=== PATIENT | female | born 1955 | race Caucasian/White ===

== ENCOUNTER 2022-09-22 22:14 | Inpatient (IN) | payer MEDICAID ==
[~2022-09-22] VITALS: Ht 157.5 cm; Wt 67.1 kg
[2022-09-22 22:15] VITALS: BP_SYST 130; PULSE 101; RESP 20; TEMP 99.6; O2SAT 98
[2022-09-22] MEDS ORDERED: cefTRIAXone 1 GM IVPB PREMIX 50 ML IV ONE (22:30)
[2022-09-22 23:39] LABS: BILIRUBIN,URINE 1+ (NEGATIVE); BLOOD, URINE NEGATIVE (NEGATIVE); CLARITY/URINE CLEAR (CLEAR); COLOR,URINE YELLOW (YELLOW); GLUCOSE,URINE NEGATIVE (NEGATIVE); KETONES,URINE TRACE (NEGATIVE); LEUKOCYTE ESTERASE ,URINE NEGATIVE (NEGATIVE); NITRITE, URINE NEGATIVE (NEGATIVE); PH,URINE 7.5 (5.0-8.0); PROTEIN URINE 3+ (NEGATIVE)
[2022-09-22 23:45] LABS: BASOPHILS % (AUTO) 0.3 % (0.0-2.0); EOSINOPHILS # (AUTO) 0.1 K/uL (0.0-0.4); EOSINOPHILS % (AUTO) 1.5 % (0.0-4.0); HEMATOCRIT 23.1 % (36-48); HEMOGLOBIN 7.8 g/dL (12.0-16.0); LYMPHOCYTES # (AUTO) 0.7 K/uL (1.0-5.5); MEAN CORPUSCULAR HEMOGLOBIN 29 pg (27-31); MEAN CORPUSCULAR HGB CONC 34 % (32-36); MEAN CORPUSCULAR VOLUME 86 fL (79.0-98.0); MONOCYTES # (AUTO) 0.9 K/uL (0.0-1.0); MONOCYTES % (AUTO) 9.2 % (1.7-9.3); NEUTROPHILS # (AUTO) 8.1 K/uL (1.8-7.7); PLATELET COUNT (AUTO) 136 K/uL (130-430); RED BLOOD CELL COUNT(AUTO) 2.69 MIL/uL (4.2-6.2); RED CELL DISTRIBUTION WIDTH 15.1 % (9.0-15.0); WHITE BLOOD COUNT (AUTO) 9.8 K/uL (4.8-10.8)
[2022-09-22 23:57] LABS: BACTERIA,URINE MANY /HPF (None Seen)
[2022-09-23] VITALS (10 sets, daily range): BP systolic 133–161; PULSE 93–96; RESP 17–20; TEMP 98–98.2; O2SAT 96–100
[2022-09-23 00:01] LABS: ANION GAP 5 (5-15); CALCIUM 8.5 mg/dL (8.4-11.0); CHLORIDE 96 mmol/L (98-107); CREATININE 3.98 mg/dL (0.55-1.30); GFR AFRICAN AMERICAN 14 mL/min (>90); GLUCOSE 105 mg/dL (74-106); UREA NITROGEN, BLOOD 24 mg/dL (8-21)
[2022-09-23 00:21] LABS: ALANINE AMINOTRANSFERASE 10 U/L (12-78); ALBUMIN 2.1 g/dL (3.4-4.8); ASPARTATE AMINOTRANSFERASE 30 U/L (10-37); TOTAL BILIRUBIN 0.8 mg/dL (0.0-1.0)
[2022-09-23] MEDS ORDERED: GLUC1VIA20 SQ (00:22)
[2022-09-23] MEDS ORDERED: SYN50 PO (00:22)
[2022-09-23] MEDS ORDERED: MULT-976 PO (00:22)
[2022-09-23] MEDS ORDERED: VITD2000 PO (00:22)
[2022-09-23] MEDS ORDERED: LACT10SO6 PO (00:22)
[2022-09-23] MEDS ORDERED: CLON1TAB12 PO (00:22)
[2022-09-23] MEDS ORDERED: LIP40 PO (00:22)
[2022-09-23] MEDS ORDERED: LAM25 PO (00:22)
[2022-09-23] MEDS ORDERED: CLON0.1T PO (00:22)
[2022-09-23] MEDS ORDERED: FOLI-43 PO (00:22)
[2022-09-23] MEDS ORDERED: SERT50TA PO (00:22)
[2022-09-23] MEDS ORDERED: LOSA50TA3 PO (00:22)
[2022-09-23] MEDS ORDERED: HYDR-4039 PO (00:22)
[2022-09-23] MEDS ORDERED: TRAM50TA2 PO (00:22)
[2022-09-23] MEDS ORDERED: PHO667 PO (00:22)
[2022-09-23] MEDS ORDERED: ASPI-1155 PO (00:22)
[2022-09-23] MEDS ORDERED: QUET50TA PO (00:22)
[2022-09-23] MEDS ORDERED: INSU100I26 SQ (00:22)
[2022-09-23] MEDS ORDERED: BENZ1TAB82 PO (00:22)
[2022-09-23] MEDS ORDERED: OMEP20TA20 PO (00:22)
[2022-09-23] MEDS ORDERED: FERROUS SULFATE PO (00:22)
[2022-09-23] MEDS ORDERED: THIA50TA10 PO (00:22)
[2022-09-23] MEDS ORDERED: cloNIDine HCL 0.1 MG TABLET PO PRN (11:30)
[2022-09-23] MEDS ORDERED: IPRATROPIUM BROM 0.5 MG/2.5 ML VIAL.NEB (ATROVENT) INH PRN (11:30)
[2022-09-23] MEDS ORDERED: ACETAMINOPHEN 325 MG TABLET PO PRN ×2 (11:30→12:00)
[2022-09-23] MEDS ORDERED: ONDANSETRON HCL 4 MG/2 ML VIAL IVP PRN (11:30)
[2022-09-23] MEDS ORDERED: ALBUTEROL SULFATE 0.083% 2.5 MG/3 ML VIAL.NEB INH PRN (11:30)
[2022-09-23] MEDS: traMADol HCL HCL 50 MG TABLET (ULTRAM) PO PRN ×2 (12:45→20:50)
[2022-09-23] MEDS ORDERED: NON-FORMULARY MEDICATION (Lactulose 20 GM) PO SCH (15:00)
[2022-09-23] MEDS: hydrALAZINE HCL 25 MG TABLET PO SCH ×2 (15:50→22:33)
[2022-09-23] MEDS: LACTULOSE 20 GM/30 ML UDC PO SCH ×2 (15:50→22:35)
[2022-09-23] MEDS: CALCIUM ACETATE 667 MG CAP PO SCH ×2 (15:50→22:34)
[2022-09-23] MEDS: NORMAL SALINE 5 ML DISP.SYRIN IVF SCH ×2 (15:51→22:36)
[2022-09-23] MEDS ORDERED: [UNRECOGNIZED DRUG - OTHER] SQ SCH (21:00)
[2022-09-23] MEDS: LamoTRIgine 25 MG TABLET PO SCH (21:00)
[2022-09-23] MEDS ORDERED: INSULIN GLARGINE HUM REC ANLOG 6 UNIT SQ SCH (21:00)
[2022-09-23] MEDS ORDERED: NON-FORMULARY MEDICATION ([Ferrous Sulfate] 325 MG) PO SCH (21:00)
[2022-09-23] MEDS: QUEtiapine FUMARATE 25 MG TABLET PO SCH (22:34)
[2022-09-23] MEDS: clonazePAM 0.5 MG TABLET PO SCH (22:34)
[2022-09-23] MEDS: FERROUS SULFATE 325 MG TABLET.DR PO SCH (22:34)
[2022-09-23] MEDS: LOSARTAN POTASSIUM 50 MG TABLET (COZAAR) PO SCH (22:35)
[2022-09-23] MEDS: BENZTROPINE MESYLATE 1 MG TABLET PO SCH (22:35)
[2022-09-23] MEDS: ATORVASTATIN 20 MG TABLET PO SCH (22:35)
[2022-09-23] MEDS: cefTRIAXone 1 GM IVPB PREMIX 50 ML IV SCH (22:37)
[2022-09-23 23:41] LABS: BILIRUBIN,URINE NEGATIVE (NEGATIVE); BLOOD, URINE NEGATIVE (NEGATIVE); COLOR,URINE YELLOW (YELLOW); GLUCOSE,URINE NEGATIVE (NEGATIVE); KETONES,URINE NEGATIVE (NEGATIVE); NITRITE, URINE NEGATIVE (NEGATIVE); PROTEIN URINE 2+ (NEGATIVE)
[2022-09-23 23:54] LABS: CLARITY/URINE SLIGHTLY CLOUDY (CLEAR); LEUKOCYTE ESTERASE ,URINE TRACE (NEGATIVE)
[2022-09-23 23:55] LABS: BACTERIA,URINE MANY /HPF (None Seen); RBC,URINE 0-3 /HPF (0-3)
[2022-09-24 01:35] VITALS: BP_SYST 156; PULSE 89; RESP 18; TEMP 97.4; O2SAT 95
[2022-09-24 05:19] LABS: BASOPHILS % (AUTO) 0.4 % (0.0-2.0); EOSINOPHILS # (AUTO) 0.1 K/uL (0.0-0.4); EOSINOPHILS % (AUTO) 1.4 % (0.0-4.0); HEMATOCRIT 23.5 % (36-48); LYMPHOCYTES # (AUTO) 0.7 K/uL (1.0-5.5); LYMPHOCYTES % (AUTO) 6.9 % (20.5-51.5); MEAN CORPUSCULAR HEMOGLOBIN 29 pg (27-31); MEAN CORPUSCULAR HGB CONC 34 % (32-36); MEAN CORPUSCULAR VOLUME 85 fL (79.0-98.0); MONOCYTES # (AUTO) 0.9 K/uL (0.0-1.0); MONOCYTES % (AUTO) 8.4 % (1.7-9.3); NEUTROPHILS # (AUTO) 8.4 K/uL (1.8-7.7); NEUTROPHILS % (AUTO) 82.9 % (40.0-70.0); PLATELET COUNT (AUTO) 144 K/uL (130-430); RED BLOOD CELL COUNT(AUTO) 2.77 MIL/uL (4.2-6.2); RED CELL DISTRIBUTION WIDTH 14.7 % (9.0-15.0); WHITE BLOOD COUNT (AUTO) 10.1 K/uL (4.8-10.8)
[2022-09-24 05:50] LABS: ALBUMIN 2.1 g/dL (3.4-4.8); CALCIUM 8.6 mg/dL (8.4-11.0); CREATININE 4.61 mg/dL (0.55-1.30); PHOSPHORUS 2.8 mg/dL (2.7-4.5); THYROID STIMULATING HORMONE 0.65 uIu/mL (0.34-4.82); TOTAL BILIRUBIN 0.7 mg/dL (0.0-1.0)
[2022-09-24] MEDS: LEVOTHYROXINE SODIUM 0.05 MG TABLET PO SCH (06:05)
[2022-09-24] MEDS: NORMAL SALINE 5 ML DISP.SYRIN IVF SCH ×3 (06:05→21:06)
[2022-09-24 07:30] VITALS: O2SAT 96
[2022-09-24 08:09] VITALS: BP_SYST 151; PULSE 94; RESP 16; TEMP 98.6; O2SAT 96
[2022-09-24] MEDS: BENZTROPINE MESYLATE 1 MG TABLET PO SCH ×2 (08:46→20:49)
[2022-09-24] MEDS: LACTULOSE 20 GM/30 ML UDC PO SCH ×4 (08:46→21:44)
[2022-09-24] MEDS: hydrALAZINE HCL 25 MG TABLET PO SCH ×3 (08:47→20:50)
[2022-09-24] MEDS: PANTOPRAZOLE SODIUM 40 MG TAB PO SCH (08:48)
[2022-09-24] MEDS: CHOLECALCIFEROL (VITAMIN D3) 2,000 UNIT TABLET PO SCH (08:48)
[2022-09-24] MEDS: THIAMINE HCL 100 MG TABLET PO SCH (08:49)
[2022-09-24] MEDS: FOLIC ACID 1 MG TABLET PO SCH (08:49)
[2022-09-24] MEDS: FERROUS SULFATE 325 MG TABLET.DR PO SCH ×2 (08:50→20:57)
[2022-09-24] MEDS: LOSARTAN POTASSIUM 50 MG TABLET (COZAAR) PO SCH ×2 (08:50→20:49)
[2022-09-24] MEDS: DOXYCYCLINE HYCLATE 100 MG CAPSULE PO SCH ×2 (08:51→20:48)
[2022-09-24] MEDS: SERTRALINE HCL 50 MG TABLET PO SCH (08:51)
[2022-09-24] MEDS: MULTIVITAMINS TAB 1 TABLET PO SCH (08:51)
[2022-09-24] MEDS: CALCIUM ACETATE 667 MG CAP PO SCH ×3 (08:52→20:49)
[2022-09-24] MEDS: LamoTRIgine 25 MG TABLET PO SCH ×2 (08:52→21:00)
[2022-09-24] MEDS: clonazePAM 0.5 MG TABLET PO SCH ×2 (08:53→20:48)
[2022-09-24] MEDS: QUEtiapine FUMARATE 25 MG TABLET PO SCH ×2 (08:54→20:48)
[2022-09-24] MEDS ORDERED: MULTIVITAMIN PO SCH (09:00)
[2022-09-24] MEDS ORDERED: NON-FORMULARY MEDICATION (Omeprazole (Prilosec Otc) 1 TAB) PO SCH (09:00)
[2022-09-24] MEDS ORDERED: THIAMINE HCL PO SCH (09:00)
[2022-09-24] MEDS: ASPIRIN 81 MG TAB.CHEW PO SCH (09:08)
[2022-09-24 11:15] VITALS: BP_SYST 156; PULSE 99; RESP 17; TEMP 97.5; O2SAT 90
[2022-09-24] MEDS: traMADol HCL HCL 50 MG TABLET (ULTRAM) PO PRN (12:51)
[2022-09-24] MEDS: LORazepam 2 MG/ML VIAL IVP PRN (13:37)
[2022-09-24] MEDS ORDERED: HEPARIN SODIUM,PORCINE 5,000 UNITS/ML VIAL MC ONE (15:45)
[2022-09-24] MEDS ORDERED: VANCOMYCIN HCL 1,000 MG in NS 250 ML IV ONE (17:00)
[2022-09-24 17:02] VITALS: BP_SYST 146; PULSE 97; RESP 17; TEMP 97; O2SAT 96
[2022-09-24] MEDS: EPOETIN ALFA-EPBX 4,000 UNITS/ML VIAL SUBCUT SCH (17:24)
[2022-09-24 20:00] VITALS: BP_SYST 156; PULSE 98; RESP 18; TEMP 97.9; O2SAT 98
[2022-09-24] MEDS: ATORVASTATIN 20 MG TABLET PO SCH (20:48)
[2022-09-24] MEDS: cefTRIAXone 1 GM IVPB PREMIX 50 ML IV SCH (20:51)
[2022-09-25 01:29] VITALS: BP_SYST 134; PULSE 99; RESP 18; TEMP 96.9; O2SAT 100
[2022-09-25] MEDS: traMADol HCL HCL 50 MG TABLET (ULTRAM) PO PRN ×2 (04:40→23:58)
[2022-09-25] MEDS ORDERED: DEXTROSE 50% JECT 50 ML DISP.SYRIN ONE (06:19)
[2022-09-25] MEDS: LEVOTHYROXINE SODIUM 0.05 MG TABLET PO SCH (06:19)
[2022-09-25] MEDS: NORMAL SALINE 5 ML DISP.SYRIN IVF SCH ×3 (06:20→20:49)
[2022-09-25] MEDS ORDERED: DEXTROSE 50% JECT 50 ML DISP.SYRIN IVP ONE (06:45)
[2022-09-25 08:00] VITALS: PULSE 91; RESP 20; TEMP 97.7; O2SAT 96
[2022-09-25] MEDS: clonazePAM 0.5 MG TABLET PO SCH ×2 (09:00→20:33)
[2022-09-25] MEDS: LACTULOSE 20 GM/30 ML UDC PO SCH ×3 (09:01→21:00)
[2022-09-25] MEDS: QUEtiapine FUMARATE 25 MG TABLET PO SCH ×2 (09:01→20:32)
[2022-09-25] MEDS: CALCIUM ACETATE 667 MG CAP PO SCH ×3 (09:02→20:31)
[2022-09-25] MEDS: DOXYCYCLINE HYCLATE 100 MG CAPSULE PO SCH ×2 (09:02→20:32)
[2022-09-25] MEDS: ASPIRIN 81 MG TAB.CHEW PO SCH (09:02)
[2022-09-25] MEDS: LamoTRIgine 25 MG TABLET PO SCH ×2 (09:02→20:36)
[2022-09-25] MEDS: THIAMINE HCL 100 MG TABLET PO SCH (09:02)
[2022-09-25] MEDS: BENZTROPINE MESYLATE 1 MG TABLET PO SCH ×2 (09:02→20:32)
[2022-09-25] MEDS: FERROUS SULFATE 325 MG TABLET.DR PO SCH ×2 (09:03→20:32)
[2022-09-25] MEDS: FOLIC ACID 1 MG TABLET PO SCH (09:03)
[2022-09-25] MEDS: PANTOPRAZOLE SODIUM 40 MG TAB PO SCH (09:03)
[2022-09-25] MEDS: hydrALAZINE HCL 25 MG TABLET PO SCH ×3 (09:03→20:33)
[2022-09-25] MEDS: SERTRALINE HCL 50 MG TABLET PO SCH (09:03)
[2022-09-25] MEDS: MULTIVITAMINS TAB 1 TABLET PO SCH (09:03)
[2022-09-25] MEDS: LOSARTAN POTASSIUM 50 MG TABLET (COZAAR) PO SCH ×2 (09:04→20:32)
[2022-09-25] MEDS: CHOLECALCIFEROL (VITAMIN D3) 2,000 UNIT TABLET PO SCH (09:05)
[2022-09-25 10:24] LABS: ERYTHROCYTE SEDIMENTATION RATE 44 MM/HR (0-20)
[2022-09-25 10:28] LABS: BASOPHILS % (AUTO) 0.4 % (0.0-2.0); EOSINOPHILS # (AUTO) 0.1 K/uL (0.0-0.4); HEMATOCRIT 26.4 % (36-48); HEMOGLOBIN 8.9 g/dL (12.0-16.0); LYMPHOCYTES # (AUTO) 0.6 K/uL (1.0-5.5); LYMPHOCYTES % (AUTO) 5.3 % (20.5-51.5); MEAN CORPUSCULAR HEMOGLOBIN 29 pg (27-31); MEAN CORPUSCULAR HGB CONC 34 % (32-36); MEAN CORPUSCULAR VOLUME 85 fL (79.0-98.0); MONOCYTES # (AUTO) 0.9 K/uL (0.0-1.0); MONOCYTES % (AUTO) 8.3 % (1.7-9.3); NEUTROPHILS # (AUTO) 9.3 K/uL (1.8-7.7); PLATELET COUNT (AUTO) 142 K/uL (130-430); RED CELL DISTRIBUTION WIDTH 14.7 % (9.0-15.0); WHITE BLOOD COUNT (AUTO) 10.9 K/uL (4.8-10.8)
[2022-09-25 10:43] LABS: ALBUMIN 2.1 g/dL (3.4-4.8); CREATININE 3.27 mg/dL (0.55-1.30); PHOSPHORUS 2.5 mg/dL (2.7-4.5); TOTAL BILIRUBIN 0.6 mg/dL (0.0-1.0)
[2022-09-25] MEDS ORDERED: METOPROLOL TARTRATE 25 MG TABLET PO ONE (12:15)
[2022-09-25 12:49] VITALS: BP_SYST 131; PULSE 92; RESP 20; TEMP 97.1; O2SAT 98
[2022-09-25 16:00] VITALS: BP_SYST 129; PULSE 89; RESP 18; TEMP 97; O2SAT 98
[2022-09-25 20:00] VITALS: BP_SYST 134; PULSE 86; RESP 18; TEMP 97.4; O2SAT 98; O2SAT 99
[2022-09-25] MEDS: ATORVASTATIN 20 MG TABLET PO SCH (20:31)
[2022-09-25] MEDS: METOPROLOL TARTRATE 25 MG TABLET PO SCH (20:33)
[2022-09-25] MEDS: cefTRIAXone 1 GM IVPB PREMIX 50 ML IV SCH (20:36)
[2022-09-26 00:28] VITALS: BP_SYST 133; PULSE 81; RESP 16; TEMP 97.8; O2SAT 96
[2022-09-26] MEDS: LEVOTHYROXINE SODIUM 0.05 MG TABLET PO SCH (06:02)
[2022-09-26] MEDS: NORMAL SALINE 5 ML DISP.SYRIN IVF SCH ×3 (06:03→22:12)
[2022-09-26 06:16] LABS: BASOPHILS % (AUTO) 0.4 % (0.0-2.0); EOSINOPHILS # (AUTO) 0.3 K/uL (0.0-0.4); HEMATOCRIT 26.3 % (36-48); HEMOGLOBIN 8.7 g/dL (12.0-16.0); LYMPHOCYTES # (AUTO) 0.8 K/uL (1.0-5.5); LYMPHOCYTES % (AUTO) 6.1 % (20.5-51.5); MEAN CORPUSCULAR HEMOGLOBIN 28 pg (27-31); MEAN CORPUSCULAR HGB CONC 33 % (32-36); MEAN CORPUSCULAR VOLUME 85 fL (79.0-98.0); MONOCYTES % (AUTO) 7.8 % (1.7-9.3); NEUTROPHILS # (AUTO) 10.7 K/uL (1.8-7.7); NEUTROPHILS % (AUTO) 83.7 % (40.0-70.0); PLATELET COUNT (AUTO) 175 K/uL (130-430); RED BLOOD CELL COUNT(AUTO) 3.08 MIL/uL (4.2-6.2); RED CELL DISTRIBUTION WIDTH 14.6 % (9.0-15.0); WHITE BLOOD COUNT (AUTO) 12.8 K/uL (4.8-10.8)
[2022-09-26 06:32] LABS: CALCIUM 9.5 mg/dL (8.4-11.0); CREATININE 3.95 mg/dL (0.55-1.30); PHOSPHORUS 2.8 mg/dL (2.7-4.5)
[2022-09-26 06:40] LABS: ERYTHROCYTE SEDIMENTATION RATE 39 MM/HR (0-20)
[2022-09-26 08:13] VITALS: PULSE 84; O2SAT 95
[2022-09-26] MEDS: hydrALAZINE HCL 25 MG TABLET PO SCH ×3 (09:00→21:59)
[2022-09-26] MEDS: LACTULOSE 20 GM/30 ML UDC PO SCH ×3 (09:00→21:54)
[2022-09-26] MEDS: clonazePAM 0.5 MG TABLET PO SCH ×2 (09:40→21:54)
[2022-09-26] MEDS: MULTIVITAMINS TAB 1 TABLET PO SCH (09:41)
[2022-09-26] MEDS: BENZTROPINE MESYLATE 1 MG TABLET PO SCH ×2 (09:41→21:57)
[2022-09-26] MEDS: PANTOPRAZOLE SODIUM 40 MG TAB PO SCH (09:41)
[2022-09-26] MEDS: SERTRALINE HCL 50 MG TABLET PO SCH (09:41)
[2022-09-26] MEDS: FERROUS SULFATE 325 MG TABLET.DR PO SCH ×2 (09:41→21:59)
[2022-09-26] MEDS: DOXYCYCLINE HYCLATE 100 MG CAPSULE PO SCH (09:42)
[2022-09-26] MEDS: THIAMINE HCL 100 MG TABLET PO SCH (09:42)
[2022-09-26] MEDS: CALCIUM ACETATE 667 MG CAP PO SCH ×3 (09:43→21:57)
[2022-09-26] MEDS: CHOLECALCIFEROL (VITAMIN D3) 2,000 UNIT TABLET PO SCH (09:43)
[2022-09-26] MEDS: FOLIC ACID 1 MG TABLET PO SCH (09:43)
[2022-09-26] MEDS: QUEtiapine FUMARATE 25 MG TABLET PO SCH ×2 (09:43→21:54)
[2022-09-26] MEDS: ASPIRIN 81 MG TAB.CHEW PO SCH (09:59)
[2022-09-26] MEDS: LamoTRIgine 25 MG TABLET PO SCH ×2 (10:00→22:11)
[2022-09-26 12:42] VITALS: BP_SYST 132; PULSE 88; RESP 20; TEMP 97.9; O2SAT 96
[2022-09-26 16:56] VITALS: BP_SYST 157; PULSE 82; RESP 20; TEMP 98.6; O2SAT 95
[2022-09-26] MEDS: METOPROLOL TARTRATE 25 MG TABLET PO SCH ×2 (17:00→21:58)
[2022-09-26] MEDS: LOSARTAN POTASSIUM 50 MG TABLET (COZAAR) PO SCH ×2 (17:00→21:57)
[2022-09-26] MEDS ORDERED: VANCOMYCIN HCL 1,000 MG in NS 250 ML IV ONE (17:00)
[2022-09-26] MEDS: EPOETIN ALFA-EPBX 4,000 UNITS/ML VIAL SUBCUT SCH (17:59)
[2022-09-26] MEDS: LORazepam 2 MG/ML VIAL IVP PRN (18:29)
[2022-09-26 20:00] VITALS: BP_SYST 166; PULSE 94; RESP 20; TEMP 98.6; O2SAT 98
[2022-09-26] MEDS: ATORVASTATIN 20 MG TABLET PO SCH (21:57)
[2022-09-26] MEDS: AMPICILLIN SODIUM 2 GM in NS 100 ML IV SCH (22:00)
[2022-09-27] VITALS (7 sets, daily range): BP systolic 87–158; PULSE 71–95; RESP 16–22; TEMP 97.1–98.5; O2SAT 95–99
[2022-09-27] MEDS: LORazepam 2 MG/ML VIAL IVP PRN (04:38)
[2022-09-27] MEDS: traMADol HCL HCL 50 MG TABLET (ULTRAM) PO PRN ×2 (04:39→22:03)
[2022-09-27] MEDS: NORMAL SALINE 5 ML DISP.SYRIN IVF SCH ×3 (05:57→22:05)
[2022-09-27] MEDS: LEVOTHYROXINE SODIUM 0.05 MG TABLET PO SCH (06:01)
[2022-09-27 06:09] LABS: BASOPHILS # (AUTO) 0.1 K/uL (0.0-0.2); BASOPHILS % (AUTO) 0.5 % (0.0-2.0); EOSINOPHILS # (AUTO) 0.2 K/uL (0.0-0.4); EOSINOPHILS % (AUTO) 1.9 % (0.0-4.0); HEMATOCRIT 26.7 % (36-48); HEMOGLOBIN 8.9 g/dL (12.0-16.0); LYMPHOCYTES # (AUTO) 0.7 K/uL (1.0-5.5); LYMPHOCYTES % (AUTO) 6.3 % (20.5-51.5); MEAN CORPUSCULAR HEMOGLOBIN 28 pg (27-31); MEAN CORPUSCULAR HGB CONC 33 % (32-36); MEAN CORPUSCULAR VOLUME 85 fL (79.0-98.0); MONOCYTES # (AUTO) 0.9 K/uL (0.0-1.0); MONOCYTES % (AUTO) 7.5 % (1.7-9.3); NEUTROPHILS # (AUTO) 9.9 K/uL (1.8-7.7); NEUTROPHILS % (AUTO) 83.8 % (40.0-70.0); PLATELET COUNT (AUTO) 178 K/uL (130-430); RED BLOOD CELL COUNT(AUTO) 3.15 MIL/uL (4.2-6.2); RED CELL DISTRIBUTION WIDTH 14.6 % (9.0-15.0); WHITE BLOOD COUNT (AUTO) 11.8 K/uL (4.8-10.8)
[2022-09-27 06:20] LABS: ERYTHROCYTE SEDIMENTATION RATE 59 MM/HR (0-20)
[2022-09-27 06:32] LABS: CALCIUM 9.5 mg/dL (8.4-11.0); CREATININE 3.34 mg/dL (0.55-1.30); PHOSPHORUS 2.8 mg/dL (2.7-4.5)
[2022-09-27] MEDS: AMPICILLIN SODIUM 2 GM in NS 100 ML IV SCH ×2 (09:11→22:49)
[2022-09-27] MEDS: SERTRALINE HCL 50 MG TABLET PO SCH (09:15)
[2022-09-27] MEDS: QUEtiapine FUMARATE 25 MG TABLET PO SCH ×2 (09:15→21:39)
[2022-09-27] MEDS: CALCIUM ACETATE 667 MG CAP PO SCH ×3 (09:15→21:35)
[2022-09-27] MEDS: THIAMINE HCL 100 MG TABLET PO SCH (09:15)
[2022-09-27] MEDS: FERROUS SULFATE 325 MG TABLET.DR PO SCH ×2 (09:15→21:37)
[2022-09-27] MEDS: PANTOPRAZOLE SODIUM 40 MG TAB PO SCH (09:16)
[2022-09-27] MEDS: LOSARTAN POTASSIUM 50 MG TABLET (COZAAR) PO SCH ×2 (09:16→21:37)
[2022-09-27] MEDS: METOPROLOL TARTRATE 25 MG TABLET PO SCH ×2 (09:16→21:37)
[2022-09-27] MEDS: MULTIVITAMINS TAB 1 TABLET PO SCH (09:17)
[2022-09-27] MEDS: BENZTROPINE MESYLATE 1 MG TABLET PO SCH ×2 (09:17→21:47)
[2022-09-27] MEDS: FOLIC ACID 1 MG TABLET PO SCH (09:17)
[2022-09-27] MEDS: clonazePAM 0.5 MG TABLET PO SCH ×2 (09:17→21:00)
[2022-09-27] MEDS: CHOLECALCIFEROL (VITAMIN D3) 2,000 UNIT TABLET PO SCH (09:17)
[2022-09-27] MEDS: ASPIRIN 81 MG TAB.CHEW PO SCH (09:17)
[2022-09-27] MEDS: hydrALAZINE HCL 25 MG TABLET PO SCH ×3 (09:18→21:38)
[2022-09-27] MEDS: LACTULOSE 20 GM/30 ML UDC PO SCH ×3 (09:18→21:35)
[2022-09-27] MEDS: LamoTRIgine 25 MG TABLET PO SCH ×2 (09:23→21:47)
[2022-09-27] MEDS: ATORVASTATIN 20 MG TABLET PO SCH (21:38)
[2022-09-27] MEDS ORDERED: NALOXONE HCL 0.4 MG/ML AMP (NARCAN) IVP PRN (23:30)
[2022-09-27] MEDS ORDERED: HYDROcodone/ACETAMIN 5-325 MG TAB (NORCO/ VICODIN) PO ONE (23:30)
[2022-09-28] VITALS (7 sets, daily range): BP systolic 106–129; PULSE 75–86; RESP 16–20; TEMP 97.6–98; O2SAT 95–100
[2022-09-28 05:34] LABS: BASOPHILS # (AUTO) 0.1 K/uL (0.0-0.2); BASOPHILS % (AUTO) 0.8 % (0.0-2.0); EOSINOPHILS # (AUTO) 0.3 K/uL (0.0-0.4); EOSINOPHILS % (AUTO) 3.3 % (0.0-4.0); ERYTHROCYTE SEDIMENTATION RATE 43 MM/HR (0-20); HEMATOCRIT 25.6 % (36-48); HEMOGLOBIN 8.6 g/dL (12.0-16.0); LYMPHOCYTES % (AUTO) 10.5 % (20.5-51.5); MEAN CORPUSCULAR HEMOGLOBIN 29 pg (27-31); MEAN CORPUSCULAR HGB CONC 34 % (32-36); MEAN CORPUSCULAR VOLUME 85 fL (79.0-98.0); MONOCYTES # (AUTO) 0.8 K/uL (0.0-1.0); MONOCYTES % (AUTO) 8.3 % (1.7-9.3); NEUTROPHILS # (AUTO) 7.5 K/uL (1.8-7.7); NEUTROPHILS % (AUTO) 77.1 % (40.0-70.0); PLATELET COUNT (AUTO) 183 K/uL (130-430); RED CELL DISTRIBUTION WIDTH 15.4 % (9.0-15.0); WHITE BLOOD COUNT (AUTO) 9.8 K/uL (4.8-10.8)
[2022-09-28 05:57] LABS: ALBUMIN 1.9 g/dL (3.4-4.8); CALCIUM 9.8 mg/dL (8.4-11.0); CREATININE 4.38 mg/dL (0.55-1.30); PHOSPHORUS 3.1 mg/dL (2.7-4.5); TOTAL BILIRUBIN 0.4 mg/dL (0.0-1.0)
[2022-09-28] MEDS: LEVOTHYROXINE SODIUM 0.05 MG TABLET PO SCH (06:30)
[2022-09-28] MEDS: NORMAL SALINE 5 ML DISP.SYRIN IVF SCH ×3 (06:32→22:00)
[2022-09-28] MEDS: ASPIRIN 81 MG TAB.CHEW PO SCH (09:00)
[2022-09-28] MEDS: hydrALAZINE HCL 25 MG TABLET PO SCH ×3 (09:00→21:15)
[2022-09-28] MEDS: METOPROLOL TARTRATE 25 MG TABLET PO SCH ×2 (09:00→21:27)
[2022-09-28] MEDS: LamoTRIgine 25 MG TABLET PO SCH ×2 (09:00→21:26)
[2022-09-28] MEDS: LOSARTAN POTASSIUM 50 MG TABLET (COZAAR) PO SCH ×2 (09:00→21:16)
[2022-09-28] MEDS ORDERED: BENZOCAINE 20% 0.5mL UD SPRAY MM ONE (09:42)
[2022-09-28] MEDS ORDERED: LIDOCAINE 2% JELLY UROJECT 10 ML MM ONE (09:42)
[2022-09-28] MEDS ORDERED: fentaNYL CITRATE/PF 100 MCG/2 ML AMP ONE (09:43)
[2022-09-28] MEDS ORDERED: MIDAZOLAM HCL 5 MG/5 ML VIAL ONE (09:43)
[2022-09-28] MEDS: AMPICILLIN SODIUM 2 GM in NS 100 ML IV SCH (10:36)
[2022-09-28] MEDS: FOLIC ACID 1 MG TABLET PO SCH (14:29)
[2022-09-28] MEDS: FERROUS SULFATE 325 MG TABLET.DR PO SCH ×2 (14:29→21:16)
[2022-09-28] MEDS: CALCIUM ACETATE 667 MG CAP PO SCH ×3 (14:29→21:15)
[2022-09-28] MEDS: CHOLECALCIFEROL (VITAMIN D3) 2,000 UNIT TABLET PO SCH (14:29)
[2022-09-28] MEDS: BENZTROPINE MESYLATE 1 MG TABLET PO SCH ×2 (14:29→21:16)
[2022-09-28] MEDS: LACTULOSE 20 GM/30 ML UDC PO SCH ×3 (14:30→21:14)
[2022-09-28] MEDS: MULTIVITAMINS TAB 1 TABLET PO SCH (14:40)
[2022-09-28] MEDS: PANTOPRAZOLE SODIUM 40 MG TAB PO SCH (14:40)
[2022-09-28] MEDS: QUEtiapine FUMARATE 25 MG TABLET PO SCH ×2 (14:44→21:27)
[2022-09-28] MEDS: traMADol HCL HCL 50 MG TABLET (ULTRAM) PO PRN ×2 (14:44→21:28)
[2022-09-28] MEDS: THIAMINE HCL 100 MG TABLET PO SCH (14:44)
[2022-09-28] MEDS: SERTRALINE HCL 50 MG TABLET PO SCH (14:44)
[2022-09-28] MEDS: clonazePAM 0.5 MG TABLET PO SCH ×2 (14:45→21:00)
[2022-09-28] MEDS ORDERED: LIDOCAINE PF 1%, 20 MG/2 ML AMP INJ ONE (15:00)
[2022-09-28] MEDS ORDERED: MORPHINE 2 MG/ML INJ. SYRINGE IVP ONE (16:00)
[2022-09-28] MEDS ORDERED: NALOXONE HCL 0.4 MG/ML AMP (NARCAN) IVP PRN (16:00)
[2022-09-28] MEDS: EPOETIN ALFA-EPBX 4,000 UNITS/ML VIAL SUBCUT SCH ×2 (17:00→23:35)
[2022-09-28] MEDS: D5/0.45 NS 1,000 ML IV SCH (18:34)
[2022-09-28] MEDS ORDERED: EPOETIN ALFA 10,000 UNITS/ML VIAL ONE (20:18)
[2022-09-28] MEDS: ATORVASTATIN 20 MG TABLET PO SCH (21:15)
[2022-09-29] VITALS: BP_SYST 121; PULSE 75; RESP 20; TEMP 97; O2SAT 95
[2022-09-29] MEDS: AMPICILLIN SODIUM 2 GM in NS 100 ML IV SCH ×3 (01:16→20:32)
[2022-09-29] MEDS: EPOETIN ALFA-EPBX 4,000 UNITS/ML VIAL SUBCUT SCH (05:37)
[2022-09-29] MEDS: NORMAL SALINE 5 ML DISP.SYRIN IVF SCH ×3 (05:51→22:32)
[2022-09-29] MEDS: LEVOTHYROXINE SODIUM 0.05 MG TABLET PO SCH (05:52)
[2022-09-29 08:00] VITALS: BP_SYST 120; PULSE 72; RESP 16; TEMP 97.4; O2SAT 98
[2022-09-29] MEDS: QUEtiapine FUMARATE 25 MG TABLET PO SCH ×2 (09:56→20:22)
[2022-09-29] MEDS: FOLIC ACID 1 MG TABLET PO SCH (09:56)
[2022-09-29] MEDS: SERTRALINE HCL 50 MG TABLET PO SCH (09:57)
[2022-09-29] MEDS: CALCIUM ACETATE 667 MG CAP PO SCH ×3 (09:57→20:20)
[2022-09-29] MEDS: FERROUS SULFATE 325 MG TABLET.DR PO SCH ×2 (09:57→20:20)
[2022-09-29] MEDS: ASPIRIN 81 MG TAB.CHEW PO SCH (09:57)
[2022-09-29] MEDS: THIAMINE HCL 100 MG TABLET PO SCH (09:57)
[2022-09-29] MEDS: MULTIVITAMINS TAB 1 TABLET PO SCH (09:57)
[2022-09-29] MEDS: PANTOPRAZOLE SODIUM 40 MG TAB PO SCH (09:58)
[2022-09-29] MEDS: BENZTROPINE MESYLATE 1 MG TABLET PO SCH ×2 (09:58→20:22)
[2022-09-29] MEDS: LOSARTAN POTASSIUM 50 MG TABLET (COZAAR) PO SCH ×2 (09:58→20:20)
[2022-09-29] MEDS: CHOLECALCIFEROL (VITAMIN D3) 2,000 UNIT TABLET PO SCH (09:58)
[2022-09-29] MEDS: METOPROLOL TARTRATE 25 MG TABLET PO SCH ×2 (09:59→20:22)
[2022-09-29] MEDS: hydrALAZINE HCL 25 MG TABLET PO SCH ×3 (09:59→20:21)
[2022-09-29] MEDS: LACTULOSE 20 GM/30 ML UDC PO SCH ×3 (10:00→20:20)
[2022-09-29] MEDS: LamoTRIgine 25 MG TABLET PO SCH ×2 (10:03→20:27)
[2022-09-29] MEDS: D5/0.45 NS 1,000 ML IV SCH (11:20)
[2022-09-29 12:00] VITALS: BP_SYST 116; PULSE 71; RESP 16; TEMP 97.2; O2SAT 98
[2022-09-29] MEDS: LORazepam 2 MG/ML VIAL IVP PRN ×2 (13:31→22:52)
[2022-09-29 14:30] VITALS: O2SAT 98
[2022-09-29 16:00] VITALS: BP_SYST 115; PULSE 73; RESP 15; TEMP 96.8; O2SAT 98
[2022-09-29 17:40] VITALS: BP_SYST 115; PULSE 73; O2SAT 98
[2022-09-29] MEDS: ATORVASTATIN 20 MG TABLET PO SCH (20:22)
[2022-09-30] VITALS (9 sets, daily range): BP systolic 127–144; PULSE 71–86; RESP 16–20; TEMP 97–98; O2SAT 93–99
[2022-09-30] MEDS: NORMAL SALINE 5 ML DISP.SYRIN IVF SCH ×3 (06:00→22:18)
[2022-09-30] MEDS: D5/0.45 NS 1,000 ML IV SCH (06:53)
[2022-09-30] MEDS: LEVOTHYROXINE SODIUM 0.05 MG TABLET PO SCH (06:54)
[2022-09-30] MEDS: LACTULOSE 20 GM/30 ML UDC PO SCH ×3 (09:00→20:51)
[2022-09-30] MEDS: ASPIRIN 81 MG TAB.CHEW PO SCH (09:07)
[2022-09-30] MEDS: AMPICILLIN SODIUM 2 GM in NS 100 ML IV SCH ×2 (09:08→20:58)
[2022-09-30] MEDS: QUEtiapine FUMARATE 25 MG TABLET PO SCH ×2 (09:08→20:51)
[2022-09-30] MEDS: FERROUS SULFATE 325 MG TABLET.DR PO SCH ×2 (09:08→20:51)
[2022-09-30] MEDS: PANTOPRAZOLE SODIUM 40 MG TAB PO SCH (09:08)
[2022-09-30] MEDS: CALCIUM ACETATE 667 MG CAP PO SCH ×3 (09:08→17:09)
[2022-09-30] MEDS: LamoTRIgine 25 MG TABLET PO SCH ×2 (09:09→21:17)
[2022-09-30] MEDS: BENZTROPINE MESYLATE 1 MG TABLET PO SCH ×2 (09:09→20:52)
[2022-09-30] MEDS: MULTIVITAMINS TAB 1 TABLET PO SCH (09:09)
[2022-09-30] MEDS: THIAMINE HCL 100 MG TABLET PO SCH (09:09)
[2022-09-30] MEDS: LOSARTAN POTASSIUM 50 MG TABLET (COZAAR) PO SCH (09:10)
[2022-09-30] MEDS: FOLIC ACID 1 MG TABLET PO SCH (09:10)
[2022-09-30] MEDS: CHOLECALCIFEROL (VITAMIN D3) 2,000 UNIT TABLET PO SCH (09:10)
[2022-09-30] MEDS: SERTRALINE HCL 50 MG TABLET PO SCH (09:10)
[2022-09-30] MEDS: hydrALAZINE HCL 25 MG TABLET PO SCH ×3 (09:11→20:52)
[2022-09-30] MEDS: METOPROLOL TARTRATE 25 MG TABLET PO SCH ×2 (09:11→20:53)
[2022-09-30 09:28] LABS: BASOPHILS # (AUTO) 0.1 K/uL (0.0-0.2); BASOPHILS % (AUTO) 0.8 % (0.0-2.0); EOSINOPHILS # (AUTO) 0.3 K/uL (0.0-0.4); EOSINOPHILS % (AUTO) 2.5 % (0.0-4.0); HEMATOCRIT 30.7 % (36-48); HEMOGLOBIN 10.2 g/dL (12.0-16.0); LYMPHOCYTES # (AUTO) 1.1 K/uL (1.0-5.5); MEAN CORPUSCULAR HEMOGLOBIN 28 pg (27-31); MEAN CORPUSCULAR HGB CONC 33 % (32-36); MEAN CORPUSCULAR VOLUME 85 fL (79.0-98.0); MONOCYTES # (AUTO) 0.9 K/uL (0.0-1.0); MONOCYTES % (AUTO) 6.6 % (1.7-9.3); NEUTROPHILS # (AUTO) 11.3 K/uL (1.8-7.7); NEUTROPHILS % (AUTO) 82.1 % (40.0-70.0); PLATELET COUNT (AUTO) 261 K/uL (130-430); RED BLOOD CELL COUNT(AUTO) 3.61 MIL/uL (4.2-6.2); RED CELL DISTRIBUTION WIDTH 15.5 % (9.0-15.0); WHITE BLOOD COUNT (AUTO) 13.8 K/uL (4.8-10.8)
[2022-09-30 09:44] LABS: CALCIUM 10.2 mg/dL (8.4-11.0); CREATININE 4.9 mg/dL (0.55-1.30); PHOSPHORUS 3.6 mg/dL (2.7-4.5)
[2022-09-30 09:48] LABS: ERYTHROCYTE SEDIMENTATION RATE 50 MM/HR (0-20)
[2022-09-30] MEDS: INSULIN REGULAR, HUMAN 100 UNITS/ML, 3 ML VIAL (humuLIN R) SUBCUT PRN ×2 (11:54→21:00)
[2022-09-30] MEDS: SEVELAMER CARBONATE 800 MG TABLET PO SCH ×2 (11:58→17:05)
[2022-09-30] MEDS: SILDENAFIL CITRATE 20 MG TABLET PO SCH ×2 (15:54→20:51)
[2022-09-30] MEDS: ATORVASTATIN 20 MG TABLET PO SCH (20:51)
[2022-09-30] MEDS: traMADol HCL HCL 50 MG TABLET (ULTRAM) PO PRN (21:06)
[2022-09-30] MEDS: LORazepam 2 MG/ML VIAL IVP PRN (21:22)
[2022-10-01 00:39] VITALS: BP_SYST 144; PULSE 76; RESP 16; TEMP 96.7; O2SAT 95
[2022-10-01] MEDS: D5/0.45 NS 1,000 ML IV SCH ×2 (05:17→23:51)
[2022-10-01] MEDS: NORMAL SALINE 5 ML DISP.SYRIN IVF SCH ×3 (05:18→22:00)
[2022-10-01 05:43] LABS: ERYTHROCYTE SEDIMENTATION RATE 30 MM/HR (0-20)
[2022-10-01 05:49] LABS: BASOPHILS # (AUTO) 0.1 K/uL (0.0-0.2); BASOPHILS % (AUTO) 0.4 % (0.0-2.0); EOSINOPHILS # (AUTO) 0.3 K/uL (0.0-0.4); EOSINOPHILS % (AUTO) 2.4 % (0.0-4.0); HEMATOCRIT 25.3 % (36-48); HEMOGLOBIN 8.6 g/dL (12.0-16.0); LYMPHOCYTES # (AUTO) 1.2 K/uL (1.0-5.5); LYMPHOCYTES % (AUTO) 8.4 % (20.5-51.5); MEAN CORPUSCULAR HEMOGLOBIN 29 pg (27-31); MEAN CORPUSCULAR HGB CONC 34 % (32-36); MEAN CORPUSCULAR VOLUME 85 fL (79.0-98.0); MONOCYTES # (AUTO) 0.8 K/uL (0.0-1.0); MONOCYTES % (AUTO) 5.7 % (1.7-9.3); NEUTROPHILS # (AUTO) 11.6 K/uL (1.8-7.7); NEUTROPHILS % (AUTO) 83.1 % (40.0-70.0); PLATELET COUNT (AUTO) 192 K/uL (130-430); RED BLOOD CELL COUNT(AUTO) 2.99 MIL/uL (4.2-6.2)
[2022-10-01 06:07] LABS: INR 1.3 (0.8-1.2); PROTHROMBIN TIME 13.7 SECS (9.5-12.5)
[2022-10-01] MEDS: LEVOTHYROXINE SODIUM 0.05 MG TABLET PO SCH (06:13)
[2022-10-01 06:14] LABS: ALBUMIN 1.9 g/dL (3.4-4.8); CALCIUM 9.7 mg/dL (8.4-11.0); CREATININE 5.47 mg/dL (0.55-1.30); PHOSPHORUS 3.1 mg/dL (2.7-4.5); TOTAL BILIRUBIN 0.4 mg/dL (0.0-1.0)
[2022-10-01] MEDS: SEVELAMER CARBONATE 800 MG TABLET PO SCH ×3 (08:00→18:00)
[2022-10-01] MEDS: AMPICILLIN SODIUM 2 GM in NS 100 ML IV SCH ×2 (08:53→21:29)
[2022-10-01] MEDS: SILDENAFIL CITRATE 20 MG TABLET PO SCH ×3 (09:00→21:28)
[2022-10-01] MEDS: FOLIC ACID 1 MG TABLET PO SCH (09:00)
[2022-10-01] MEDS: SERTRALINE HCL 50 MG TABLET PO SCH (09:00)
[2022-10-01] MEDS: BENZTROPINE MESYLATE 1 MG TABLET PO SCH ×2 (09:00→21:28)
[2022-10-01] MEDS: FERROUS SULFATE 325 MG TABLET.DR PO SCH ×2 (09:00→21:28)
[2022-10-01] MEDS: hydrALAZINE HCL 25 MG TABLET PO SCH ×2 (09:00→21:27)
[2022-10-01] MEDS: LOSARTAN POTASSIUM 25 MG TABLET PO SCH (09:00)
[2022-10-01] MEDS: LamoTRIgine 25 MG TABLET PO SCH ×2 (09:00→21:43)
[2022-10-01] MEDS: METOPROLOL SUCCINATE 50 MG TAB.SR.24H (TOPROL XL) PO SCH (09:00)
[2022-10-01] MEDS: PANTOPRAZOLE SODIUM 40 MG TAB PO SCH (09:00)
[2022-10-01] MEDS: LACTULOSE 20 GM/30 ML UDC PO SCH ×3 (09:00→21:29)
[2022-10-01] MEDS: MULTIVITAMINS TAB 1 TABLET PO SCH (09:00)
[2022-10-01] MEDS: QUEtiapine FUMARATE 25 MG TABLET PO SCH ×2 (09:00→21:29)
[2022-10-01] MEDS: THIAMINE HCL 100 MG TABLET PO SCH (09:00)
[2022-10-01] MEDS: ASPIRIN 81 MG TAB.CHEW PO SCH (09:00)
[2022-10-01] MEDS: CHOLECALCIFEROL (VITAMIN D3) 2,000 UNIT TABLET PO SCH (09:00)
[2022-10-01 10:53] LABS: INR 1.3 (0.8-1.2); PROTHROMBIN TIME 13.4 SECS (9.5-12.5)
[2022-10-01 11:30] VITALS: BP_SYST 155; PULSE 77; RESP 20; TEMP 97.9; O2SAT 100
[2022-10-01] MEDS: EPOETIN ALFA-EPBX 4,000 UNITS/ML VIAL SUBCUT SCH (17:00)
[2022-10-01 17:14] VITALS: BP_SYST 151; PULSE 86; RESP 20; TEMP 98; O2SAT 100
[2022-10-01 20:00] VITALS: BP_SYST 152; PULSE 86; RESP 20; TEMP 97; O2SAT 98
[2022-10-01] MEDS: ATORVASTATIN 20 MG TABLET PO SCH (21:28)
[2022-10-01] MEDS: LORazepam 2 MG/ML VIAL IVP PRN (21:29)
[2022-10-02 00:08] VITALS: BP_SYST 100; PULSE 88; RESP 16; TEMP 97; O2SAT 97
[2022-10-02] MEDS: NORMAL SALINE 5 ML DISP.SYRIN IVF SCH ×3 (06:00→22:29)
[2022-10-02] MEDS: LEVOTHYROXINE SODIUM 0.05 MG TABLET PO SCH (06:18)
[2022-10-02] MEDS ORDERED: PROPOFOL 200MG/ 20ML VIAL (DIPRIVAN) IV ONE (07:36)
[2022-10-02] MEDS ORDERED: BUPIVACAINE /PF 0.25% 30 ML VIAL INJ ONE (07:36)
[2022-10-02] MEDS ORDERED: SEVOFLURANE 15 MIN GAS INH ONE (07:36)
[2022-10-02] MEDS ORDERED: D5NS 1,000 ML IV.SOLN IV ONE (07:36)
[2022-10-02] MEDS ORDERED: HEPARIN SODIUM,PORCINE 10,000 UNIT/ML VIAL ONE (07:36)
[2022-10-02] MEDS ORDERED: LIDOCAINE/EPI MPF 1%1:200000 30 ML VIAL ONE (07:36)
[2022-10-02 08:00] VITALS: O2SAT 99
[2022-10-02] MEDS: SEVELAMER CARBONATE 800 MG TABLET PO SCH ×3 (08:00→18:05)
[2022-10-02] MEDS ORDERED: ONDANSETRON HCL 4 MG/2 ML VIAL IVP PRN (08:15)
[2022-10-02] MEDS ORDERED: MORPHINE 4 MG INJ. 4 MG/ML VIAL IVP PRN (08:15)
[2022-10-02] MEDS ORDERED: KETOROLAC TROMETHAMINE 30 MG VIAL IVP PRN (08:15)
[2022-10-02] MEDS ORDERED: MIDAZOLAM HCL 5 MG/5 ML VIAL IVP PRN (08:15)
[2022-10-02] MEDS ORDERED: METOCLOPRAMIDE HCL 10 MG/2 ML VIAL IVP PRN (08:15)
[2022-10-02] MEDS: BENZTROPINE MESYLATE 1 MG TABLET PO SCH ×2 (09:00→22:25)
[2022-10-02] MEDS: FERROUS SULFATE 325 MG TABLET.DR PO SCH ×2 (09:00→22:25)
[2022-10-02] MEDS: LamoTRIgine 25 MG TABLET PO SCH ×2 (09:00→23:35)
[2022-10-02] MEDS: ASPIRIN 81 MG TAB.CHEW PO SCH (09:00)
[2022-10-02] MEDS: THIAMINE HCL 100 MG TABLET PO SCH (09:00)
[2022-10-02] MEDS: LOSARTAN POTASSIUM 25 MG TABLET PO SCH (09:00)
[2022-10-02] MEDS: SILDENAFIL CITRATE 20 MG TABLET PO SCH ×3 (09:00→23:36)
[2022-10-02] MEDS: CHOLECALCIFEROL (VITAMIN D3) 2,000 UNIT TABLET PO SCH (09:00)
[2022-10-02] MEDS: FOLIC ACID 1 MG TABLET PO SCH (09:00)
[2022-10-02] MEDS: QUEtiapine FUMARATE 25 MG TABLET PO SCH ×2 (09:00→22:25)
[2022-10-02] MEDS: hydrALAZINE HCL 25 MG TABLET PO SCH ×2 (09:00→22:25)
[2022-10-02] MEDS: LACTULOSE 20 GM/30 ML UDC PO SCH ×3 (09:00→22:25)
[2022-10-02] MEDS: AMPICILLIN SODIUM 2 GM in NS 100 ML IV SCH ×2 (09:00→22:26)
[2022-10-02] MEDS: SERTRALINE HCL 50 MG TABLET PO SCH (09:00)
[2022-10-02] MEDS: MULTIVITAMINS TAB 1 TABLET PO SCH (09:00)
[2022-10-02] MEDS: PANTOPRAZOLE SODIUM 40 MG TAB PO SCH (09:00)
[2022-10-02] MEDS ORDERED: ROCPM1 IV (09:31)
[2022-10-02] MEDS ORDERED: HYDR-4039 PO (09:31)
[2022-10-02] MEDS ORDERED: METO-542 PO (09:31)
[2022-10-02] MEDS ORDERED: Ferrous Sulfate PO (09:31)
[2022-10-02] MEDS ORDERED: AMPI2VIA INJ (09:31)
[2022-10-02] MEDS ORDERED: LOSA50TA3 PO (09:31)
[2022-10-02 09:47] VITALS: BP_SYST 129; PULSE 89; RESP 16; TEMP 97.6; O2SAT 83
[2022-10-02 11:30] VITALS: BP_SYST 136; PULSE 85; RESP 18; TEMP 98.1; O2SAT 96
[2022-10-02] MEDS ORDERED: HEPARIN SODIUM,PORCINE 5,000 UNITS/ML VIAL ONE (14:28)
[2022-10-02] MEDS: METOPROLOL SUCCINATE 50 MG TAB.SR.24H (TOPROL XL) PO SCH (15:15)
[2022-10-02 16:30] VITALS: BP_SYST 150; PULSE 91; RESP 17; TEMP 97.9; O2SAT 94
[2022-10-02 19:00] VITALS: O2SAT 93
[2022-10-02] MEDS: ATORVASTATIN 20 MG TABLET PO SCH (22:25)
[2022-10-02] MEDS: D5/0.45 NS 1,000 ML IV SCH (22:26)
[2022-10-03] VITALS (8 sets, daily range): BP systolic 90–152; PULSE 70–90; RESP 18–20; TEMP 96.7–98; O2SAT 82–100
[2022-10-03] MEDS: LORazepam 2 MG/ML VIAL IVP PRN (03:00)
[2022-10-03] MEDS: NORMAL SALINE 5 ML DISP.SYRIN IVF SCH ×3 (06:14→23:35)
[2022-10-03] MEDS: LEVOTHYROXINE SODIUM 0.05 MG TABLET PO SCH (06:14)
[2022-10-03 06:40] LABS: BASOPHILS # (AUTO) 0.1 K/uL (0.0-0.2); BASOPHILS % (AUTO) 0.6 % (0.0-2.0); EOSINOPHILS # (AUTO) 0.3 K/uL (0.0-0.4); EOSINOPHILS % (AUTO) 2.7 % (0.0-4.0); HEMATOCRIT 27.1 % (36-48); HEMOGLOBIN 8.9 g/dL (12.0-16.0); LYMPHOCYTES % (AUTO) 8.3 % (20.5-51.5); MEAN CORPUSCULAR HEMOGLOBIN 28 pg (27-31); MEAN CORPUSCULAR HGB CONC 33 % (32-36); MEAN CORPUSCULAR VOLUME 86 fL (79.0-98.0); MONOCYTES % (AUTO) 8.8 % (1.7-9.3); NEUTROPHILS # (AUTO) 9.3 K/uL (1.8-7.7); NEUTROPHILS % (AUTO) 79.6 % (40.0-70.0); PLATELET COUNT (AUTO) 200 K/uL (130-430); RED BLOOD CELL COUNT(AUTO) 3.15 MIL/uL (4.2-6.2); RED CELL DISTRIBUTION WIDTH 15.9 % (9.0-15.0); WHITE BLOOD COUNT (AUTO) 11.6 K/uL (4.8-10.8)
[2022-10-03 07:02] LABS: CALCIUM 9.5 mg/dL (8.4-11.0); CREATININE 3.68 mg/dL (0.55-1.30); PHOSPHORUS 2.9 mg/dL (2.7-4.5)
[2022-10-03 08:49] LABS: ERYTHROCYTE SEDIMENTATION RATE 61 MM/HR (0-20)
[2022-10-03] MEDS: AMPICILLIN SODIUM 2 GM in NS 100 ML IV SCH ×2 (10:05→23:35)
[2022-10-03] MEDS: SEVELAMER CARBONATE 800 MG TABLET PO SCH ×3 (10:06→17:17)
[2022-10-03] MEDS: LACTULOSE 20 GM/30 ML UDC PO SCH ×3 (10:06→23:34)
[2022-10-03] MEDS: ASPIRIN 81 MG TAB.CHEW PO SCH (10:06)
[2022-10-03] MEDS: METOPROLOL SUCCINATE 50 MG TAB.SR.24H (TOPROL XL) PO SCH (10:07)
[2022-10-03] MEDS: LamoTRIgine 25 MG TABLET PO SCH ×2 (10:07→23:35)
[2022-10-03] MEDS: BENZTROPINE MESYLATE 1 MG TABLET PO SCH ×2 (10:07→23:34)
[2022-10-03] MEDS: LOSARTAN POTASSIUM 25 MG TABLET PO SCH (10:07)
[2022-10-03] MEDS: hydrALAZINE HCL 25 MG TABLET PO SCH ×2 (10:08→23:33)
[2022-10-03] MEDS: QUEtiapine FUMARATE 25 MG TABLET PO SCH ×2 (10:08→23:32)
[2022-10-03] MEDS: PANTOPRAZOLE SODIUM 40 MG TAB PO SCH (10:09)
[2022-10-03] MEDS: MULTIVITAMINS TAB 1 TABLET PO SCH (10:09)
[2022-10-03] MEDS: FOLIC ACID 1 MG TABLET PO SCH (10:09)
[2022-10-03] MEDS: FERROUS SULFATE 325 MG TABLET.DR PO SCH ×2 (10:09→23:33)
[2022-10-03] MEDS: SERTRALINE HCL 50 MG TABLET PO SCH (10:09)
[2022-10-03] MEDS: THIAMINE HCL 100 MG TABLET PO SCH (10:09)
[2022-10-03] MEDS: CHOLECALCIFEROL (VITAMIN D3) 2,000 UNIT TABLET PO SCH (10:09)
[2022-10-03] MEDS: D5/0.45 NS 1,000 ML IV SCH (10:10)
[2022-10-03] MEDS: SILDENAFIL CITRATE 20 MG TABLET PO SCH ×3 (10:20→23:34)
[2022-10-03] MEDS ORDERED: NACL 0.9% 1,000 ML IV ONE (14:00)
[2022-10-03] MEDS: EPOETIN ALFA-EPBX 4,000 UNITS/ML VIAL SUBCUT SCH (17:04)
[2022-10-03] MEDS: ATORVASTATIN 20 MG TABLET PO SCH (23:32)
[2022-10-04] VITALS (7 sets, daily range): BP systolic 118–157; PULSE 68–94; RESP 18–19; TEMP 97.6–98.6; O2SAT 97–100
[2022-10-04 06:21] LABS: BASOPHILS # (AUTO) 0.1 K/uL (0.0-0.2); BASOPHILS % (AUTO) 0.7 % (0.0-2.0); EOSINOPHILS # (AUTO) 0.4 K/uL (0.0-0.4); EOSINOPHILS % (AUTO) 2.9 % (0.0-4.0); HEMATOCRIT 25.8 % (36-48); HEMOGLOBIN 8.5 g/dL (12.0-16.0); LYMPHOCYTES % (AUTO) 8.1 % (20.5-51.5); MEAN CORPUSCULAR HEMOGLOBIN 29 pg (27-31); MEAN CORPUSCULAR HGB CONC 33 % (32-36); MEAN CORPUSCULAR VOLUME 87 fL (79.0-98.0); MONOCYTES # (AUTO) 0.9 K/uL (0.0-1.0); MONOCYTES % (AUTO) 7.8 % (1.7-9.3); NEUTROPHILS # (AUTO) 9.8 K/uL (1.8-7.7); NEUTROPHILS % (AUTO) 80.5 % (40.0-70.0); PLATELET COUNT (AUTO) 189 K/uL (130-430); RED BLOOD CELL COUNT(AUTO) 2.97 MIL/uL (4.2-6.2); WHITE BLOOD COUNT (AUTO) 12.2 K/uL (4.8-10.8)
[2022-10-04 06:30] LABS: ERYTHROCYTE SEDIMENTATION RATE 44 MM/HR (0-20)
[2022-10-04 06:40] LABS: CALCIUM 9.6 mg/dL (8.4-11.0); CREATININE 4.8 mg/dL (0.55-1.30); PHOSPHORUS 2.9 mg/dL (2.7-4.5)
[2022-10-04] MEDS: LEVOTHYROXINE SODIUM 0.05 MG TABLET PO SCH (06:53)
[2022-10-04] MEDS: NORMAL SALINE 5 ML DISP.SYRIN IVF SCH ×2 (06:55→14:00)
[2022-10-04] MEDS: ASPIRIN 81 MG TAB.CHEW PO SCH (08:41)
[2022-10-04] MEDS: LamoTRIgine 25 MG TABLET PO SCH (08:41)
[2022-10-04] MEDS: QUEtiapine FUMARATE 25 MG TABLET PO SCH ×2 (08:41→22:11)
[2022-10-04] MEDS: SEVELAMER CARBONATE 800 MG TABLET PO SCH ×4 (08:42→17:40)
[2022-10-04] MEDS: SERTRALINE HCL 50 MG TABLET PO SCH (08:42)
[2022-10-04] MEDS: SILDENAFIL CITRATE 20 MG TABLET PO SCH ×2 (08:42→14:42)
[2022-10-04] MEDS: FOLIC ACID 1 MG TABLET PO SCH (08:42)
[2022-10-04] MEDS: THIAMINE HCL 100 MG TABLET PO SCH (08:42)
[2022-10-04] MEDS: FERROUS SULFATE 325 MG TABLET.DR PO SCH ×2 (08:42→22:11)
[2022-10-04] MEDS: BENZTROPINE MESYLATE 1 MG TABLET PO SCH ×2 (08:43→22:11)
[2022-10-04] MEDS: CHOLECALCIFEROL (VITAMIN D3) 2,000 UNIT TABLET PO SCH (08:43)
[2022-10-04] MEDS: MULTIVITAMINS TAB 1 TABLET PO SCH (08:43)
[2022-10-04] MEDS: LACTULOSE 20 GM/30 ML UDC PO SCH ×3 (08:43→22:10)
[2022-10-04] MEDS: PANTOPRAZOLE SODIUM 40 MG TAB PO SCH (08:55)
[2022-10-04] MEDS: AMPICILLIN SODIUM 2 GM in NS 100 ML IV SCH ×2 (09:29→22:19)
[2022-10-04] MEDS: METOPROLOL SUCCINATE 50 MG TAB.SR.24H (TOPROL XL) PO SCH (11:00)
[2022-10-04] MEDS: hydrALAZINE HCL 25 MG TABLET PO SCH ×2 (11:00→22:16)
[2022-10-04] MEDS: LOSARTAN POTASSIUM 25 MG TABLET PO SCH (11:00)
[2022-10-04] MEDS ORDERED: POTASSIUM CHLORIDE 20 MEQ TAB.PRT.SR PO ONE (11:00)
[2022-10-04] MEDS: D5/0.45 NS 1,000 ML IV SCH (11:25)
[2022-10-04] MEDS: HEPARIN SODIUM,PORCINE 5,000 UNITS/ML VIAL IV PRN (15:42)
[2022-10-04] MEDS: LORazepam 2 MG/ML VIAL IVP PRN (18:12)
[2022-10-04] MEDS: ATORVASTATIN 20 MG TABLET PO SCH (22:11)
[2022-10-05] VITALS: BP_SYST 148; PULSE 85; RESP 16; TEMP 97.3; O2SAT 96
[2022-10-05] MEDS: LamoTRIgine 25 MG TABLET PO SCH ×3 (04:12→21:00)
[2022-10-05] MEDS: SILDENAFIL CITRATE 20 MG TABLET PO SCH ×4 (04:13→21:00)
[2022-10-05] MEDS: NORMAL SALINE 5 ML DISP.SYRIN IVF SCH ×4 (04:14→22:32)
[2022-10-05 05:29] LABS: ERYTHROCYTE SEDIMENTATION RATE 29 MM/HR (0-20)
[2022-10-05 05:33] LABS: BASOPHILS # (AUTO) 0.1 K/uL (0.0-0.2); BASOPHILS % (AUTO) 0.5 % (0.0-2.0); EOSINOPHILS # (AUTO) 0.3 K/uL (0.0-0.4); EOSINOPHILS % (AUTO) 2.5 % (0.0-4.0); HEMATOCRIT 25.9 % (36-48); HEMOGLOBIN 8.7 g/dL (12.0-16.0); LYMPHOCYTES % (AUTO) 9.6 % (20.5-51.5); MEAN CORPUSCULAR HEMOGLOBIN 29 pg (27-31); MEAN CORPUSCULAR HGB CONC 33 % (32-36); MEAN CORPUSCULAR VOLUME 87 fL (79.0-98.0); MONOCYTES # (AUTO) 0.7 K/uL (0.0-1.0); MONOCYTES % (AUTO) 6.8 % (1.7-9.3); NEUTROPHILS # (AUTO) 8.8 K/uL (1.8-7.7); NEUTROPHILS % (AUTO) 80.6 % (40.0-70.0); PLATELET COUNT (AUTO) 141 K/uL (130-430); RED BLOOD CELL COUNT(AUTO) 2.99 MIL/uL (4.2-6.2); RED CELL DISTRIBUTION WIDTH 16.3 % (9.0-15.0); WHITE BLOOD COUNT (AUTO) 10.9 K/uL (4.8-10.8)
[2022-10-05 05:52] LABS: CALCIUM 9.3 mg/dL (8.4-11.0); CREATININE 3.21 mg/dL (0.55-1.30); PHOSPHORUS 2.4 mg/dL (2.7-4.5); TOTAL BILIRUBIN 0.4 mg/dL (0.0-1.0)
[2022-10-05] MEDS: D5/0.45 NS 1,000 ML IV SCH (06:36)
[2022-10-05] MEDS: LEVOTHYROXINE SODIUM 0.05 MG TABLET PO SCH (06:38)
[2022-10-05 08:05] VITALS: PULSE 86; O2SAT 96
[2022-10-05 08:07] VITALS: BP_SYST 121; PULSE 86; RESP 20; TEMP 97.4; O2SAT 96
[2022-10-05] MEDS: SERTRALINE HCL 50 MG TABLET PO SCH (09:14)
[2022-10-05] MEDS: LACTULOSE 20 GM/30 ML UDC PO SCH ×3 (09:14→22:27)
[2022-10-05] MEDS: QUEtiapine FUMARATE 25 MG TABLET PO SCH ×2 (09:15→22:29)
[2022-10-05] MEDS: PANTOPRAZOLE SODIUM 40 MG TAB PO SCH (09:16)
[2022-10-05] MEDS: LOSARTAN POTASSIUM 25 MG TABLET PO SCH (09:16)
[2022-10-05] MEDS: MULTIVITAMINS TAB 1 TABLET PO SCH (09:16)
[2022-10-05] MEDS: FOLIC ACID 1 MG TABLET PO SCH (09:16)
[2022-10-05] MEDS: SEVELAMER CARBONATE 800 MG TABLET PO SCH ×3 (09:16→18:15)
[2022-10-05] MEDS: BENZTROPINE MESYLATE 1 MG TABLET PO SCH ×2 (09:17→22:30)
[2022-10-05] MEDS: ASPIRIN 81 MG TAB.CHEW PO SCH (09:17)
[2022-10-05] MEDS: THIAMINE HCL 100 MG TABLET PO SCH (09:17)
[2022-10-05] MEDS: FERROUS SULFATE 325 MG TABLET.DR PO SCH ×2 (09:17→22:31)
[2022-10-05] MEDS: METOPROLOL SUCCINATE 50 MG TAB.SR.24H (TOPROL XL) PO SCH (09:18)
[2022-10-05] MEDS: CHOLECALCIFEROL (VITAMIN D3) 2,000 UNIT TABLET PO SCH (09:21)
[2022-10-05] MEDS: hydrALAZINE HCL 25 MG TABLET PO SCH ×2 (09:21→22:29)
[2022-10-05] MEDS: AMPICILLIN SODIUM 2 GM in NS 100 ML IV SCH ×2 (09:22→21:00)
[2022-10-05] MEDS ORDERED: NA PHOS 15 MM in NS 250 ML IV ONE (11:00)
[2022-10-05 12:00] VITALS: BP_SYST 116; PULSE 78; RESP 17; TEMP 97.8; O2SAT 98
[2022-10-05 17:20] VITALS: BP_SYST 108; PULSE 80; RESP 17; TEMP 97.8; O2SAT 99
[2022-10-05] MEDS: EPOETIN ALFA-EPBX 4,000 UNITS/ML VIAL SUBCUT SCH (17:43)
[2022-10-05 20:00] VITALS: BP_SYST 123; PULSE 82; RESP 18; TEMP 98.1; O2SAT 98; O2SAT 99
[2022-10-05] MEDS: ATORVASTATIN 20 MG TABLET PO SCH (21:00)
[2022-10-05] MEDS: LORazepam 2 MG/ML VIAL IVP PRN (22:22)
[2022-10-05] MEDS: traMADol HCL HCL 50 MG TABLET (ULTRAM) PO PRN (22:29)
[2022-10-05] MEDS ORDERED: traZODone HCL 50 MG TABLET (DESYREL) PO PRN (23:00)
[2022-10-06 00:09] VITALS: BP_SYST 130; PULSE 83; RESP 20; TEMP 97.8; O2SAT 96
[2022-10-06] MEDS: D5/0.45 NS 1,000 ML IV SCH ×2 (03:23→18:52)
[2022-10-06 04:00] VITALS: BP_SYST 128; PULSE 77; RESP 20; TEMP 98; O2SAT 98
[2022-10-06] MEDS: NORMAL SALINE 5 ML DISP.SYRIN IVF SCH ×3 (06:28→22:23)
[2022-10-06] MEDS: LEVOTHYROXINE SODIUM 0.05 MG TABLET PO SCH (06:28)
[2022-10-06 06:44] LABS: CREATININE 4.19 mg/dL (0.55-1.30); PHOSPHORUS 4.5 mg/dL (2.7-4.5)
[2022-10-06 07:13] LABS: BASOPHILS # (AUTO) 0.1 K/uL (0.0-0.2); BASOPHILS % (AUTO) 0.6 % (0.0-2.0); EOSINOPHILS # (AUTO) 0.4 K/uL (0.0-0.4); EOSINOPHILS % (AUTO) 3.3 % (0.0-4.0); HEMATOCRIT 24.1 % (36-48); LYMPHOCYTES # (AUTO) 1.1 K/uL (1.0-5.5); LYMPHOCYTES % (AUTO) 10.7 % (20.5-51.5); MEAN CORPUSCULAR HEMOGLOBIN 29 pg (27-31); MEAN CORPUSCULAR HGB CONC 33 % (32-36); MEAN CORPUSCULAR VOLUME 87 fL (79.0-98.0); MONOCYTES # (AUTO) 0.8 K/uL (0.0-1.0); MONOCYTES % (AUTO) 7.4 % (1.7-9.3); NEUTROPHILS # (AUTO) 8.2 K/uL (1.8-7.7); PLATELET COUNT (AUTO) 135 K/uL (130-430); RED BLOOD CELL COUNT(AUTO) 2.78 MIL/uL (4.2-6.2); RED CELL DISTRIBUTION WIDTH 16.9 % (9.0-15.0); WHITE BLOOD COUNT (AUTO) 10.5 K/uL (4.8-10.8)
[2022-10-06 07:43] LABS: HEMOGLOBIN 7.9 g/dL (12.0-16.0)
[2022-10-06 08:00] VITALS: BP_SYST 134; PULSE 78; RESP 20; TEMP 97.8; O2SAT 96; O2SAT 99
[2022-10-06] MEDS: AMPICILLIN SODIUM 2 GM in NS 100 ML IV SCH ×2 (08:18→20:06)
[2022-10-06] MEDS: hydrALAZINE HCL 25 MG TABLET PO SCH ×2 (08:31→20:03)
[2022-10-06] MEDS: SEVELAMER CARBONATE 800 MG TABLET PO SCH ×3 (08:31→17:22)
[2022-10-06] MEDS: SERTRALINE HCL 50 MG TABLET PO SCH (08:31)
[2022-10-06] MEDS: MULTIVITAMINS TAB 1 TABLET PO SCH (08:31)
[2022-10-06] MEDS: FERROUS SULFATE 325 MG TABLET.DR PO SCH ×2 (08:32→20:02)
[2022-10-06] MEDS: QUEtiapine FUMARATE 25 MG TABLET PO SCH ×2 (08:32→20:03)
[2022-10-06] MEDS: PANTOPRAZOLE SODIUM 40 MG TAB PO SCH (08:33)
[2022-10-06] MEDS: FOLIC ACID 1 MG TABLET PO SCH (08:33)
[2022-10-06] MEDS: THIAMINE HCL 100 MG TABLET PO SCH (08:33)
[2022-10-06] MEDS: LOSARTAN POTASSIUM 25 MG TABLET PO SCH (08:33)
[2022-10-06] MEDS: CHOLECALCIFEROL (VITAMIN D3) 2,000 UNIT TABLET PO SCH (08:34)
[2022-10-06] MEDS: BENZTROPINE MESYLATE 1 MG TABLET PO SCH ×2 (08:34→20:04)
[2022-10-06] MEDS: METOPROLOL SUCCINATE 50 MG TAB.SR.24H (TOPROL XL) PO SCH (08:34)
[2022-10-06] MEDS: LACTULOSE 20 GM/30 ML UDC PO SCH ×3 (08:34→20:04)
[2022-10-06 08:42] LABS: ERYTHROCYTE SEDIMENTATION RATE 36 MM/HR (0-20)
[2022-10-06] MEDS: ASPIRIN 81 MG TAB.CHEW PO SCH (08:45)
[2022-10-06] MEDS: LamoTRIgine 25 MG TABLET PO SCH ×2 (08:45→20:24)
[2022-10-06] MEDS: SILDENAFIL CITRATE 20 MG TABLET PO SCH ×3 (08:45→20:24)
[2022-10-06 11:22] VITALS: BP_SYST 125; PULSE 76; RESP 18; TEMP 98.3; O2SAT 97
[2022-10-06] MEDS: INSULIN REGULAR, HUMAN 100 UNITS/ML, 3 ML VIAL (humuLIN R) SUBCUT PRN (11:22)
[2022-10-06] MEDS: HEPARIN SODIUM,PORCINE 5,000 UNITS/ML VIAL IV PRN (15:24)
[2022-10-06 16:58] VITALS: BP_SYST 101; PULSE 73; RESP 18; TEMP 97.8; O2SAT 95
[2022-10-06] MEDS: ATORVASTATIN 20 MG TABLET PO SCH (20:04)
[2022-10-06 20:57] VITALS: BP_SYST 137; PULSE 82; RESP 17; TEMP 97.1; O2SAT 99
[2022-10-07 00:13] VITALS: BP_SYST 123; PULSE 85; RESP 18; TEMP 97.4; O2SAT 98
[2022-10-07 01:06] VITALS: O2SAT 98
[2022-10-07 06:00] LABS: BASOPHILS % (AUTO) 0.4 % (0.0-2.0); EOSINOPHILS # (AUTO) 0.2 K/uL (0.0-0.4); EOSINOPHILS % (AUTO) 2.4 % (0.0-4.0); HEMATOCRIT 24.5 % (36-48); HEMOGLOBIN 8.1 g/dL (12.0-16.0); LYMPHOCYTES % (AUTO) 11.4 % (20.5-51.5); MEAN CORPUSCULAR HEMOGLOBIN 29 pg (27-31); MEAN CORPUSCULAR HGB CONC 33 % (32-36); MEAN CORPUSCULAR VOLUME 87 fL (79.0-98.0); MONOCYTES # (AUTO) 0.8 K/uL (0.0-1.0); MONOCYTES % (AUTO) 8.5 % (1.7-9.3); NEUTROPHILS # (AUTO) 6.9 K/uL (1.8-7.7); NEUTROPHILS % (AUTO) 77.3 % (40.0-70.0); PLATELET COUNT (AUTO) 115 K/uL (130-430); RED BLOOD CELL COUNT(AUTO) 2.82 MIL/uL (4.2-6.2); RED CELL DISTRIBUTION WIDTH 17.4 % (9.0-15.0); WHITE BLOOD COUNT (AUTO) 8.9 K/uL (4.8-10.8)
[2022-10-07 06:23] LABS: ERYTHROCYTE SEDIMENTATION RATE 32 MM/HR (0-20)
[2022-10-07] MEDS: NORMAL SALINE 5 ML DISP.SYRIN IVF SCH ×3 (06:26→21:21)
[2022-10-07 06:27] LABS: CALCIUM 8.4 mg/dL (8.4-11.0); CREATININE 3.08 mg/dL (0.55-1.30); PHOSPHORUS 2.8 mg/dL (2.7-4.5)
[2022-10-07] MEDS: LEVOTHYROXINE SODIUM 0.05 MG TABLET PO SCH (06:29)
[2022-10-07 07:00] VITALS: O2SAT 96
[2022-10-07] MEDS: LOSARTAN POTASSIUM 25 MG TABLET PO SCH (10:07)
[2022-10-07] MEDS: THIAMINE HCL 100 MG TABLET PO SCH (10:08)
[2022-10-07] MEDS: FOLIC ACID 1 MG TABLET PO SCH (10:08)
[2022-10-07] MEDS: SERTRALINE HCL 50 MG TABLET PO SCH (10:08)
[2022-10-07] MEDS: BENZTROPINE MESYLATE 1 MG TABLET PO SCH ×2 (10:08→21:15)
[2022-10-07] MEDS: CHOLECALCIFEROL (VITAMIN D3) 2,000 UNIT TABLET PO SCH (10:08)
[2022-10-07] MEDS: FERROUS SULFATE 325 MG TABLET.DR PO SCH ×2 (10:08→21:15)
[2022-10-07] MEDS: MULTIVITAMINS TAB 1 TABLET PO SCH (10:08)
[2022-10-07] MEDS: PANTOPRAZOLE SODIUM 40 MG TAB PO SCH (10:08)
[2022-10-07] MEDS: QUEtiapine FUMARATE 25 MG TABLET PO SCH ×2 (10:08→21:15)
[2022-10-07] MEDS: ASPIRIN 81 MG TAB.CHEW PO SCH (10:09)
[2022-10-07] MEDS: hydrALAZINE HCL 25 MG TABLET PO SCH ×2 (10:09→21:15)
[2022-10-07] MEDS: SEVELAMER CARBONATE 800 MG TABLET PO SCH ×4 (10:10→18:00)
[2022-10-07] MEDS: AMPICILLIN SODIUM 2 GM in NS 100 ML IV SCH ×2 (10:10→21:38)
[2022-10-07] MEDS: METOPROLOL SUCCINATE 50 MG TAB.SR.24H (TOPROL XL) PO SCH (10:10)
[2022-10-07] MEDS: LACTULOSE 20 GM/30 ML UDC PO SCH ×4 (10:12→21:15)
[2022-10-07] MEDS: SILDENAFIL CITRATE 20 MG TABLET PO SCH ×4 (10:26→21:19)
[2022-10-07] MEDS: LamoTRIgine 25 MG TABLET PO SCH ×2 (10:26→21:19)
[2022-10-07 11:12] VITALS: BP_SYST 132; PULSE 80; RESP 18; TEMP 97.6; O2SAT 97
[2022-10-07 17:28] VITALS: BP_SYST 126; PULSE 87; RESP 17; TEMP 98.1; O2SAT 97
[2022-10-07] MEDS: D5/0.45 NS 1,000 ML IV SCH (17:41)
[2022-10-07 20:00] VITALS: BP_SYST 125; PULSE 79; RESP 17; TEMP 98.6; O2SAT 96
[2022-10-07] MEDS: ATORVASTATIN 20 MG TABLET PO SCH (21:14)
[2022-10-07] MEDS: traMADol HCL HCL 50 MG TABLET (ULTRAM) PO PRN (21:23)
[2022-10-08] VITALS (8 sets, daily range): BP systolic 134–165; PULSE 77–85; RESP 16–20; TEMP 97.5–98.7; O2SAT 95–99
[2022-10-08 01:58] LABS: BILIRUBIN,URINE NEGATIVE (NEGATIVE); BLOOD, URINE NEGATIVE (NEGATIVE); CLARITY/URINE CLEAR (CLEAR); COLOR,URINE YELLOW (YELLOW); GLUCOSE,URINE NEGATIVE (NEGATIVE); KETONES,URINE NEGATIVE (NEGATIVE); LEUKOCYTE ESTERASE ,URINE NEGATIVE (NEGATIVE); NITRITE, URINE NEGATIVE (NEGATIVE); PROTEIN URINE 3+ (NEGATIVE); UROBILINOGEN,URINE 0.2 (0.2-1.0)
[2022-10-08 02:13] LABS: BACTERIA,URINE None Seen /HPF (None Seen); RBC,URINE 0-3 /HPF (0-3); WBC,URINE 0-3 /HPF (0-3)
[2022-10-08 04:53] LABS: BASOPHILS # (AUTO) 0.1 K/uL (0.0-0.2); BASOPHILS % (AUTO) 0.5 % (0.0-2.0); EOSINOPHILS # (AUTO) 0.2 K/uL (0.0-0.4); EOSINOPHILS % (AUTO) 2.1 % (0.0-4.0); HEMATOCRIT 24.7 % (36-48); HEMOGLOBIN 8.2 g/dL (12.0-16.0); LYMPHOCYTES # (AUTO) 0.8 K/uL (1.0-5.5); LYMPHOCYTES % (AUTO) 7.5 % (20.5-51.5); MEAN CORPUSCULAR HEMOGLOBIN 29 pg (27-31); MEAN CORPUSCULAR HGB CONC 33 % (32-36); MEAN CORPUSCULAR VOLUME 88 fL (79.0-98.0); MONOCYTES # (AUTO) 0.9 K/uL (0.0-1.0); MONOCYTES % (AUTO) 8.4 % (1.7-9.3); NEUTROPHILS # (AUTO) 8.9 K/uL (1.8-7.7); NEUTROPHILS % (AUTO) 81.5 % (40.0-70.0); PLATELET COUNT (AUTO) 125 K/uL (130-430); RED BLOOD CELL COUNT(AUTO) 2.82 MIL/uL (4.2-6.2); RED CELL DISTRIBUTION WIDTH 17.9 % (9.0-15.0); WHITE BLOOD COUNT (AUTO) 10.9 K/uL (4.8-10.8)
[2022-10-08 05:55] LABS: CALCIUM 9.1 mg/dL (8.4-11.0); CREATININE 4.13 mg/dL (0.55-1.30); PHOSPHORUS 3.2 mg/dL (2.7-4.5); TOTAL BILIRUBIN 0.5 mg/dL (0.0-1.0)
[2022-10-08] MEDS: NORMAL SALINE 5 ML DISP.SYRIN IVF SCH ×3 (06:13→23:51)
[2022-10-08] MEDS: LEVOTHYROXINE SODIUM 0.05 MG TABLET PO SCH (06:17)
[2022-10-08 06:47] LABS: ERYTHROCYTE SEDIMENTATION RATE 21 MM/HR (0-20)
[2022-10-08] MEDS: SEVELAMER CARBONATE 800 MG TABLET PO SCH ×3 (08:00→18:35)
[2022-10-08] MEDS: AMPICILLIN SODIUM 2 GM in NS 100 ML IV SCH ×2 (08:03→23:49)
[2022-10-08] MEDS: hydrALAZINE HCL 25 MG TABLET PO SCH ×2 (09:00→23:51)
[2022-10-08] MEDS: SILDENAFIL CITRATE 20 MG TABLET PO SCH ×3 (09:00→23:55)
[2022-10-08] MEDS: METOPROLOL SUCCINATE 50 MG TAB.SR.24H (TOPROL XL) PO SCH ×2 (09:00→12:05)
[2022-10-08] MEDS: LamoTRIgine 25 MG TABLET PO SCH ×2 (09:00→23:55)
[2022-10-08] MEDS: LOSARTAN POTASSIUM 25 MG TABLET PO SCH (09:00)
[2022-10-08] MEDS: BENZTROPINE MESYLATE 1 MG TABLET PO SCH ×2 (09:00→23:47)
[2022-10-08] MEDS: SERTRALINE HCL 50 MG TABLET PO SCH ×2 (10:19→12:06)
[2022-10-08] MEDS: FOLIC ACID 1 MG TABLET PO SCH ×2 (10:19→12:03)
[2022-10-08] MEDS: MULTIVITAMINS TAB 1 TABLET PO SCH ×2 (10:19→12:04)
[2022-10-08] MEDS: LACTULOSE 20 GM/30 ML UDC PO SCH ×3 (10:19→23:47)
[2022-10-08] MEDS: CHOLECALCIFEROL (VITAMIN D3) 2,000 UNIT TABLET PO SCH ×2 (10:19→12:05)
[2022-10-08] MEDS: FERROUS SULFATE 325 MG TABLET.DR PO SCH ×3 (10:20→23:47)
[2022-10-08] MEDS: QUEtiapine FUMARATE 25 MG TABLET PO SCH ×3 (10:20→23:48)
[2022-10-08] MEDS: PANTOPRAZOLE SODIUM 40 MG TAB PO SCH ×2 (10:20→12:04)
[2022-10-08] MEDS: THIAMINE HCL 100 MG TABLET PO SCH ×2 (10:20→12:04)
[2022-10-08] MEDS: D5/0.45 NS 1,000 ML IV SCH ×2 (15:00→18:39)
[2022-10-08] MEDS: ATORVASTATIN 20 MG TABLET PO SCH (23:47)
[2022-10-09] VITALS (7 sets, daily range): BP systolic 134–144; PULSE 74–85; RESP 16–20; TEMP 96.8–98.3; O2SAT 94–100
[2022-10-09 05:53] LABS: BASOPHILS # (AUTO) 0.1 K/uL (0.0-0.2); BASOPHILS % (AUTO) 0.6 % (0.0-2.0); EOSINOPHILS # (AUTO) 0.2 K/uL (0.0-0.4); EOSINOPHILS % (AUTO) 2.2 % (0.0-4.0); LYMPHOCYTES # (AUTO) 1.1 K/uL (1.0-5.5); LYMPHOCYTES % (AUTO) 10.5 % (20.5-51.5); MEAN CORPUSCULAR HEMOGLOBIN 29 pg (27-31); MEAN CORPUSCULAR HGB CONC 33 % (32-36); MEAN CORPUSCULAR VOLUME 87 fL (79.0-98.0); MONOCYTES # (AUTO) 0.7 K/uL (0.0-1.0); MONOCYTES % (AUTO) 6.9 % (1.7-9.3); NEUTROPHILS # (AUTO) 8.2 K/uL (1.8-7.7); NEUTROPHILS % (AUTO) 79.8 % (40.0-70.0); PLATELET COUNT (AUTO) 118 K/uL (130-430); RED BLOOD CELL COUNT(AUTO) 2.76 MIL/uL (4.2-6.2); RED CELL DISTRIBUTION WIDTH 17.8 % (9.0-15.0); WHITE BLOOD COUNT (AUTO) 10.3 K/uL (4.8-10.8)
[2022-10-09 06:00] LABS: CALCIUM 9.3 mg/dL (8.4-11.0); CREATININE 4.29 mg/dL (0.55-1.30); PHOSPHORUS 3.7 mg/dL (2.7-4.5)
[2022-10-09] MEDS: NORMAL SALINE 5 ML DISP.SYRIN IVF SCH ×3 (06:16→22:17)
[2022-10-09] MEDS: LEVOTHYROXINE SODIUM 0.05 MG TABLET PO SCH (06:16)
[2022-10-09 06:38] LABS: ERYTHROCYTE SEDIMENTATION RATE 38 MM/HR (0-20)
[2022-10-09] MEDS: SEVELAMER CARBONATE 800 MG TABLET PO SCH ×3 (08:00→16:36)
[2022-10-09] MEDS: hydrALAZINE HCL 25 MG TABLET PO SCH ×2 (08:19→20:49)
[2022-10-09] MEDS: LACTULOSE 20 GM/30 ML UDC PO SCH ×3 (08:19→20:52)
[2022-10-09] MEDS: BENZTROPINE MESYLATE 1 MG TABLET PO SCH ×2 (08:19→20:48)
[2022-10-09] MEDS: SILDENAFIL CITRATE 20 MG TABLET PO SCH ×3 (08:20→20:47)
[2022-10-09] MEDS: LamoTRIgine 25 MG TABLET PO SCH ×2 (08:20→20:50)
[2022-10-09] MEDS ORDERED: MIDAZOLAM HCL 2 MG/2 ML VIAL (VERSED) ONE (08:50)
[2022-10-09] MEDS ORDERED: NS 1000 ML IV.SOLN IV ONE (08:50)
[2022-10-09] MEDS ORDERED: PROPOFOL 200MG/ 20ML VIAL (DIPRIVAN) IV ONE (08:50)
[2022-10-09] MEDS ORDERED: fentaNYL CITRATE/PF 100 MCG/2 ML AMP ONE (08:50)
[2022-10-09] MEDS: AMPICILLIN SODIUM 2 GM in NS 100 ML IV SCH ×2 (09:00→20:25)
[2022-10-09] MEDS: D5/0.45 NS 1,000 ML IV SCH (20:26)
[2022-10-09] MEDS: ATORVASTATIN 20 MG TABLET PO SCH (20:51)
[2022-10-09] MEDS: FERROUS SULFATE 325 MG TABLET.DR PO SCH (20:51)
[2022-10-09] MEDS: QUEtiapine FUMARATE 25 MG TABLET PO SCH (21:10)
[2022-10-10 01:26] VITALS: BP_SYST 105; PULSE 80; RESP 17; TEMP 96.4; O2SAT 98
[2022-10-10 05:49] LABS: BASOPHILS # (AUTO) 0.1 K/uL (0.0-0.2); BASOPHILS % (AUTO) 0.9 % (0.0-2.0); EOSINOPHILS # (AUTO) 0.3 K/uL (0.0-0.4); EOSINOPHILS % (AUTO) 3.6 % (0.0-4.0); HEMATOCRIT 22.2 % (36-48); HEMOGLOBIN 7.3 g/dL (12.0-16.0); LYMPHOCYTES # (AUTO) 0.9 K/uL (1.0-5.5); LYMPHOCYTES % (AUTO) 12.1 % (20.5-51.5); MEAN CORPUSCULAR HEMOGLOBIN 29 pg (27-31); MEAN CORPUSCULAR HGB CONC 33 % (32-36); MEAN CORPUSCULAR VOLUME 87 fL (79.0-98.0); MONOCYTES # (AUTO) 0.6 K/uL (0.0-1.0); MONOCYTES % (AUTO) 8.5 % (1.7-9.3); NEUTROPHILS # (AUTO) 5.3 K/uL (1.8-7.7); NEUTROPHILS % (AUTO) 74.9 % (40.0-70.0); PLATELET COUNT (AUTO) 103 K/uL (130-430); RED BLOOD CELL COUNT(AUTO) 2.55 MIL/uL (4.2-6.2); RED CELL DISTRIBUTION WIDTH 17.9 % (9.0-15.0); WHITE BLOOD COUNT (AUTO) 7.1 K/uL (4.8-10.8)
[2022-10-10 06:04] LABS: ERYTHROCYTE SEDIMENTATION RATE 16 MM/HR (0-20)
[2022-10-10] MEDS: NORMAL SALINE 5 ML DISP.SYRIN IVF SCH ×2 (06:05→15:13)
[2022-10-10] MEDS: LEVOTHYROXINE SODIUM 0.05 MG TABLET PO SCH (06:06)
[2022-10-10 06:18] LABS: CALCIUM 8.5 mg/dL (8.4-11.0); CREATININE 3.19 mg/dL (0.55-1.30); PHOSPHORUS 3.2 mg/dL (2.7-4.5)
[2022-10-10 08:00] VITALS: BP_SYST 143; PULSE 83; RESP 18; TEMP 98.2; O2SAT 99
[2022-10-10] MEDS: SEVELAMER CARBONATE 800 MG TABLET PO SCH ×3 (08:47→17:02)
[2022-10-10] MEDS: hydrALAZINE HCL 25 MG TABLET PO SCH ×2 (08:47→20:44)
[2022-10-10] MEDS: LACTULOSE 20 GM/30 ML UDC PO SCH ×2 (08:48→15:00)
[2022-10-10] MEDS: BENZTROPINE MESYLATE 1 MG TABLET PO SCH (08:48)
[2022-10-10] MEDS: LOSARTAN POTASSIUM 25 MG TABLET PO SCH (08:48)
[2022-10-10] MEDS: FERROUS SULFATE 325 MG TABLET.DR PO SCH (08:49)
[2022-10-10] MEDS: FOLIC ACID 1 MG TABLET PO SCH (08:49)
[2022-10-10] MEDS: MULTIVITAMINS TAB 1 TABLET PO SCH (08:50)
[2022-10-10] MEDS: QUEtiapine FUMARATE 25 MG TABLET PO SCH ×2 (08:50→20:43)
[2022-10-10] MEDS: PANTOPRAZOLE SODIUM 40 MG TAB PO SCH (08:50)
[2022-10-10] MEDS: CHOLECALCIFEROL (VITAMIN D3) 2,000 UNIT TABLET PO SCH (08:51)
[2022-10-10] MEDS: SERTRALINE HCL 50 MG TABLET PO SCH (08:51)
[2022-10-10] MEDS: METOPROLOL SUCCINATE 50 MG TAB.SR.24H (TOPROL XL) PO SCH (08:52)
[2022-10-10] MEDS: THIAMINE HCL 100 MG TABLET PO SCH (08:52)
[2022-10-10] MEDS: SILDENAFIL CITRATE 20 MG TABLET PO SCH ×2 (09:00→15:00)
[2022-10-10] MEDS: LamoTRIgine 25 MG TABLET PO SCH (09:00)
[2022-10-10] MEDS: AMPICILLIN SODIUM 2 GM in NS 100 ML IV SCH ×2 (09:06→20:43)
[2022-10-10 12:00] VITALS: BP_SYST 115; PULSE 73; RESP 18; TEMP 98; O2SAT 100
[2022-10-10 16:00] VITALS: BP_SYST 134; PULSE 80; RESP 18; TEMP 97.8; O2SAT 99
[2022-10-10 16:20] VITALS: O2SAT 100
[2022-10-10 17:53] VITALS: BP_SYST 143; PULSE 83; RESP 18; TEMP 98.2; O2SAT 99
[2022-10-10] MEDS: ATORVASTATIN 20 MG TABLET PO SCH (20:43)
== END 2022-10-10 21:00 | DRG 710 ==
LOC: SED 22:14 → STU 09-23 01:32 → SMU 09-26 09:03 → STU 10-02 10:42 → SMU 10-03 13:07
PROVIDERS: ADMIT Preventive Medicine Preventive Medicine/Occupational Environmental Medicine; ATTEND Preventive Medicine Preventive Medicine/Occupational Environmental Medicine
PROC: 5A1D70Z Performance of Urinary Filtration, Intermittent, Less than 6 Hours Per Day (ICD-10-PCS; 2022-09-23)
PROC: 5A1D70Z Performance of Urinary Filtration, Intermittent, Less than 6 Hours Per Day (ICD-10-PCS; 2022-09-25)
PROC: 5A1D70Z Performance of Urinary Filtration, Intermittent, Less than 6 Hours Per Day (ICD-10-PCS; 2022-09-27)
PROC: 0JPV3XZ Removal of Tunneled Vascular Access Device from Upper Extremity Subcutaneous Tissue and Fascia, Percutaneous Approach (ICD-10-PCS; 2022-09-28)
PROC: 05PY33Z Removal of Infusion Device from Upper Vein, Percutaneous Approach (ICD-10-PCS; 2022-09-28)
PROC: 5A1D70Z Performance of Urinary Filtration, Intermittent, Less than 6 Hours Per Day (ICD-10-PCS; 2022-10-01)
PROC: 05HN33Z Insertion of Infusion Device into Left Internal Jugular Vein, Percutaneous Approach (ICD-10-PCS; 2022-10-02)
PROC: B544ZZA Ultrasonography of Left Jugular Veins, Guidance (ICD-10-PCS; 2022-10-02)
PROC: 5A1D70Z Performance of Urinary Filtration, Intermittent, Less than 6 Hours Per Day (ICD-10-PCS; 2022-10-03)
PROC: 5A1D70Z Performance of Urinary Filtration, Intermittent, Less than 6 Hours Per Day (ICD-10-PCS; 2022-10-05)
PROC: 5A1D70Z Performance of Urinary Filtration, Intermittent, Less than 6 Hours Per Day (ICD-10-PCS; 2022-10-08)
PROC: 05PY03Z Removal of Infusion Device from Upper Vein, Open Approach (ICD-10-PCS; 2022-10-09)
PROC: 0JH63XZ Insertion of Tunneled Vascular Access Device into Chest Subcutaneous Tissue and Fascia, Percutaneous Approach (ICD-10-PCS; 2022-10-09)
PROC: 02HV33Z Insertion of Infusion Device into Superior Vena Cava, Percutaneous Approach (ICD-10-PCS; 2022-10-09)
PROC: B518ZZA Fluoroscopy of Superior Vena Cava, Guidance (ICD-10-PCS; 2022-10-09)
PROC: 0JPV3XZ Removal of Tunneled Vascular Access Device from Upper Extremity Subcutaneous Tissue and Fascia, Percutaneous Approach (ICD-10-PCS; principal; 2022-10-09 08:50)
DX: A41.9 Sepsis, unspecified organism (principal); J96.00 Acute respiratory failure, unspecified whether with hypoxia or hypercapnia; G93.41 Metabolic encephalopathy; E43 Unspecified severe protein-calorie malnutrition; I13.2 Hypertensive heart and chronic kidney disease with heart failure and with stage 5 chronic kidney disease, or end stage renal disease; D69.6 Thrombocytopenia, unspecified; I21.A1 Myocardial infarction type 2; D63.8 Anemia in other chronic diseases classified elsewhere; E87.1 Hypo-osmolality and hyponatremia; N17.9 Acute kidney failure, unspecified; Z68.27 Body mass index [BMI] 27.0-27.9, adult; N18.6 End stage renal disease; I38 Endocarditis, valve unspecified; J18.9 Pneumonia, unspecified organism; N39.0 Urinary tract infection, site not specified; Z99.2 Dependence on renal dialysis; K74.60 Unspecified cirrhosis of liver; F20.9 Schizophrenia, unspecified; E11.22 Type 2 diabetes mellitus with diabetic chronic kidney disease; E11.21 Type 2 diabetes mellitus with diabetic nephropathy; E03.9 Hypothyroidism, unspecified; E78.5 Hyperlipidemia, unspecified; S82.891A Other fracture of right lower leg, initial encounter for closed fracture; E78.00 Pure hypercholesterolemia, unspecified; I50.9 Heart failure, unspecified; G25.2 Other specified forms of tremor; K21.9 Gastro-esophageal reflux disease without esophagitis; E55.9 Vitamin D deficiency, unspecified; M94.0 Chondrocostal junction syndrome [Tietze]; X58.XXXA Exposure to other specified factors, initial encounter
CPT/HCPCS: 36415; 70450-TC; 71045; 71250-TC; 76000; 76376; 80048; 80053; 80202; 81000; 82140; 82962; 83037; 83605; 83735; 83880; 84100; 84443; 84484; 85025; 85379; 85610-TC; 85651-TC; 85730-TC; 86886; 86900; 86901; 87040; 87070-TC; 87081; 87086; 87186-TC; 90935; 90937; 93005; 93306; 93312; 94760; 96365; 97110-GP; 97530-GP; 99285; C1750; C1751; C1752; C1769; G0378; J0290; J0696; J0885; J1644; J1815; J2001; J2060; J2250; J2270; J2704; J3010; J3370; J3465; J3490; J7030; J7042; J7050; J7060; J7613; Q5106

== ENCOUNTER 2022-11-05 13:14 | Inpatient (IN) | payer MEDICAID ==
[~2022-11-05] VITALS: Ht 157.5 cm; Wt 56.1 kg
[~2022-11-05 13:14] MED LIST: AMPI2VIA INJ; ASPI-1155 PO; BENZ1TAB82 PO; CLON0.1T PO; CLON1TAB12 PO; FERROUS SULFATE PO; FOLI-43 PO; Ferrous Sulfate PO; GLUC1VIA20 SQ; HYDR-4039 PO; INSU100I26 SQ; LACT10SO6 PO; LAM25 PO; LIP40 PO; LOSA50TA3 PO; METO-542 PO; MULT-976 PO; OMEP20TA20 PO; PHO667 PO; QUET50TA PO; ROCPM1 IV; SERT50TA PO; SYN50 PO; THIA50TA10 PO; TRAM50TA2 PO; VITD2000 PO
[2022-11-05 13:20] VITALS: BP_SYST 130; PULSE 71; RESP 20; TEMP 98.3; O2SAT 94
[2022-11-05] MEDS ORDERED: NALOXONE HCL 2 MG/2 ML SYR IVP ONE (13:30)
[2022-11-05 14:48] LABS: BASOPHILS % (AUTO) 0.3 % (0.0-2.0); EOSINOPHILS # (AUTO) 0.3 K/uL (0.0-0.4); EOSINOPHILS % (AUTO) 2.4 % (0.0-4.0); HEMATOCRIT 28.8 % (36-48); HEMOGLOBIN 9.2 g/dL (12.0-16.0); LYMPHOCYTES # (AUTO) 0.8 K/uL (1.0-5.5); LYMPHOCYTES % (AUTO) 6.4 % (20.5-51.5); MEAN CORPUSCULAR HEMOGLOBIN 28 pg (27-31); MEAN CORPUSCULAR HGB CONC 32 % (32-36); MEAN CORPUSCULAR VOLUME 87 fL (79.0-98.0); MONOCYTES # (AUTO) 0.7 K/uL (0.0-1.0); MONOCYTES % (AUTO) 5.3 % (1.7-9.3); NEUTROPHILS # (AUTO) 11.2 K/uL (1.8-7.7); NEUTROPHILS % (AUTO) 85.6 % (40.0-70.0); PLATELET COUNT (AUTO) 116 K/uL (130-430); RED BLOOD CELL COUNT(AUTO) 3.32 MIL/uL (4.2-6.2); RED CELL DISTRIBUTION WIDTH 17.4 % (9.0-15.0); WHITE BLOOD COUNT (AUTO) 13.1 K/uL (4.8-10.8)
[2022-11-05 14:51] LABS: BILIRUBIN,URINE NEGATIVE (NEGATIVE); BLOOD, URINE NEGATIVE (NEGATIVE); CLARITY/URINE CLEAR (CLEAR); COLOR,URINE YELLOW (YELLOW); GLUCOSE,URINE NEGATIVE (NEGATIVE); KETONES,URINE NEGATIVE (NEGATIVE); PH,URINE 7.5 (5.0-8.0); PROTEIN URINE 3+ (NEGATIVE)
[2022-11-05 14:52] LABS: LEUKOCYTE ESTERASE ,URINE TRACE (NEGATIVE); NITRITE, URINE NEGATIVE (NEGATIVE)
[2022-11-05 15:00] LABS: ANION GAP 9 (5-15); CARBON DIOXIDE 31 mmol/L (23-29); CHLORIDE 98 mmol/L (98-107); CREATININE 6.52 mg/dL (0.55-1.30); GFR AFRICAN AMERICAN 8 mL/min (>90); GFR NON AFRICAN-AMERICAN 7 mL/min (>90); GLUCOSE 113 mg/dL (74-106); POTASSIUM 3.1 mmol/L (3.5-5.1); SODIUM SERUM 138 mmol/L (136-145); UREA NITROGEN, BLOOD 65 mg/dL (8-21)
[2022-11-05 15:01] LABS: BACTERIA,URINE RARE /HPF (None Seen); RBC,URINE 0-3 /HPF (0-3)
[2022-11-05 15:01] LABS: INR 1.3 (0.8-1.2); PROTHROMBIN TIME 13.3 SECS (9.5-12.5)
[2022-11-05 15:02] LABS: YEAST,URINE Few /HPF (None Seen)
[2022-11-05 15:04] LABS: BARBITURATE, URINE NEGATIVE (NEG <=200); BENZODIAZEPINE, URINE NEGATIVE (NEG <=150); CANNABINOID, URINE NEGATIVE (NEG <=50); COCAINE, URINE NEGATIVE (NEG <=150); METHAMPHETAMINES SCREEN,URINE NEGATIVE (NEG <=500); OPIATE, URINE NEGATIVE (NEG <=100); PHENCYCLIDINE SCREEN,URINE NEGATIVE (NEG <=25); URINE AMPHETAMINE NEGATIVE (NEG <=500); URINE METHADONE NEGATIVE (NEG <=200); URINE OXYCODONE SCREEN NEGATIVE (NEG <=100); URINE PROPOXYPHENE SCREEN NEGATIVE (NEG <=300)
[2022-11-05 15:05] LABS: ACETONE, SERUM NEGATIVE (NEGATIVE)
[2022-11-05 15:05] LABS: UR TRICYCLIC ANTIDEPRESSANTS NEGATIVE (NEG <=300)
[2022-11-05 15:30] LABS: ALANINE AMINOTRANSFERASE 3 U/L (12-78); ALBUMIN 1.8 g/dL (3.4-4.8); ASPARTATE AMINOTRANSFERASE 34 U/L (10-37); CREATINE KINASE, TOTAL 14 U/L (26-192); SALICYLATE 2 mg/dL (3-30); TOTAL BILIRUBIN 0.7 mg/dL (0.0-1.0); TOTAL PROTEIN, SERUM 6.2 g/dL (6.4-8.3)
[2022-11-05 15:33] LABS: ACETAMINOPHEN < 1 ug/mL (1-30); ALCOHOL, BLOOD < 3 mg/dL (<10)
[2022-11-05] MEDS ORDERED: MORPHINE 2 MG/ML INJ. SYRINGE IVP PRN ×2 (19:45)
[2022-11-05] MEDS ORDERED: MUPIROCIN 2% TOPICAL OINTMENT 22 GM NS PRN (19:45)
[2022-11-05] MEDS ORDERED: ACETAMINOPHEN 325 MG TABLET PO PRN ×2 (19:45→20:00)
[2022-11-05] MEDS ORDERED: LORazepam 2 MG/ML VIAL IVP PRN (19:45)
[2022-11-05] MEDS ORDERED: INSULIN LISPRO SLIDING SCALE 100 UNITS/ML, 3 ML VIAL (humaLOG) SUBCUT PRN (19:45)
[2022-11-05] MEDS ORDERED: ONDANSETRON HCL 4 MG/2 ML VIAL IVP PRN (19:45)
[2022-11-05] MEDS ORDERED: MAGNESIUM SULFATE 50 ML IV PRN (19:45)
[2022-11-05] MEDS ORDERED: POTASSIUM CHLORIDE 20 MEQ TAB.PRT.SR PO PRN (19:45)
[2022-11-05] MEDS ORDERED: ZOLPIDEM TARTRATE 5 MG TABLET PO PRN (19:45)
[2022-11-05] MEDS ORDERED: DOCUSATE SODIUM 100 MG CAPSULE PO PRN (19:45)
[2022-11-05] MEDS ORDERED: DEXTROSE 50% JECT 50 ML DISP.SYRIN IVP PRN (19:45)
[2022-11-05] MEDS ORDERED: FLUCONAZOLE 200 mg/ NS 100 ML IV ONE ×2 (20:00→23:20)
[2022-11-05 20:57] VITALS: BP_SYST 151; PULSE 75; RESP 18; TEMP 97.2
[2022-11-05] MEDS: QUEtiapine FUMARATE 25 MG TABLET PO SCH (21:00)
[2022-11-05] MEDS: LamoTRIgine 25 MG TABLET PO SCH (21:00)
[2022-11-05] MEDS: D5NS 1,000 ML IV SCH (21:56)
[2022-11-05] MEDS: LACTULOSE 20 GM/30 ML UDC PO SCH (22:54)
[2022-11-05 23:00] VITALS: O2SAT 96
[2022-11-05] MEDS: ATORVASTATIN 20 MG TABLET PO SCH (23:04)
[2022-11-06 00:31] VITALS: BP_SYST 161; PULSE 74; RESP 17; TEMP 97.2; O2SAT 96
[2022-11-06] MEDS ORDERED: KCL 20 mEq in 100 mL (PREMIX) 100 ML IV ONE (00:45)
[2022-11-06 05:29] LABS: BASOPHILS # (AUTO) 0.1 K/uL (0.0-0.2); BASOPHILS % (AUTO) 0.3 % (0.0-2.0); EOSINOPHILS # (AUTO) 0.1 K/uL (0.0-0.4); EOSINOPHILS % (AUTO) 0.7 % (0.0-4.0); HEMATOCRIT 28.6 % (36-48); HEMOGLOBIN 9.2 g/dL (12.0-16.0); LYMPHOCYTES # (AUTO) 0.7 K/uL (1.0-5.5); LYMPHOCYTES % (AUTO) 3.7 % (20.5-51.5); MEAN CORPUSCULAR HEMOGLOBIN 28 pg (27-31); MEAN CORPUSCULAR HGB CONC 32 % (32-36); MEAN CORPUSCULAR VOLUME 86 fL (79.0-98.0); MONOCYTES # (AUTO) 0.7 K/uL (0.0-1.0); MONOCYTES % (AUTO) 3.8 % (1.7-9.3); NEUTROPHILS # (AUTO) 16.9 K/uL (1.8-7.7); NEUTROPHILS % (AUTO) 91.5 % (40.0-70.0); PLATELET COUNT (AUTO) 162 K/uL (130-430); RED BLOOD CELL COUNT(AUTO) 3.34 MIL/uL (4.2-6.2); WHITE BLOOD COUNT (AUTO) 18.5 K/uL (4.8-10.8)
[2022-11-06 05:54] LABS: CALCIUM 8.9 mg/dL (8.4-11.0); CREATININE 6.88 mg/dL (0.55-1.30); POTASSIUM 3.6 mmol/L (3.5-5.1)
[2022-11-06] MEDS: LEVOTHYROXINE SODIUM 0.05 MG TABLET PO SCH (06:23)
[2022-11-06 08:00] VITALS: BP_SYST 189; PULSE 78; RESP 16; TEMP 97; O2SAT 96
[2022-11-06] MEDS: AMPICILLIN SODIUM 2 GM in NS 100 ML IV SCH ×2 (09:28→23:04)
[2022-11-06] MEDS: SERTRALINE HCL 50 MG TABLET PO SCH (09:28)
[2022-11-06] MEDS: FOLIC ACID 1 MG TABLET PO SCH (09:29)
[2022-11-06] MEDS: CALCIUM ACETATE 667 MG CAP PO SCH ×3 (09:29→17:14)
[2022-11-06] MEDS: LamoTRIgine 25 MG TABLET PO SCH ×2 (09:29→22:24)
[2022-11-06] MEDS: QUEtiapine FUMARATE 25 MG TABLET PO SCH ×2 (09:30→22:24)
[2022-11-06] MEDS: hydrALAZINE HCL 25 MG TABLET PO SCH ×2 (09:30→22:23)
[2022-11-06] MEDS: ASPIRIN 81 MG TAB.CHEW PO SCH (09:31)
[2022-11-06] MEDS: LOSARTAN POTASSIUM 25 MG TABLET PO SCH (09:31)
[2022-11-06] MEDS: METOPROLOL SUCCINATE 50 MG TAB.SR.24H (TOPROL XL) PO SCH (09:32)
[2022-11-06] MEDS: LACTULOSE 20 GM/30 ML UDC PO SCH ×2 (09:32→21:00)
[2022-11-06] MEDS ORDERED: NYSTATIN 30 GM TOPICAL CREAM TP ONE (11:00)
[2022-11-06 11:40] VITALS: BP_SYST 146; PULSE 84; RESP 18; TEMP 98; O2SAT 93
[2022-11-06] MEDS ORDERED: HEPARIN SODIUM, PORCINE 10,000 UNITS/ 10 ML VIAL MC PRN (13:00)
[2022-11-06 17:00] VITALS: BP_SYST 120; PULSE 66; RESP 16; TEMP 97; O2SAT 94
[2022-11-06] MEDS ORDERED: HEPARIN SODIUM,PORCINE 5,000 UNITS/ML VIAL MC PRN (17:15)
[2022-11-06] MEDS ORDERED: IPRATROPIUM/ALBUTEROL SULFATE 3 ML AMPUL.NEB (DUONEB) INH PRN (19:00)
[2022-11-06 19:50] VITALS: O2SAT 96
[2022-11-06] MEDS: ATORVASTATIN 20 MG TABLET PO SCH (22:23)
[2022-11-06] MEDS: NYSTATIN 30 GM TOPICAL CREAM TP SCH (22:38)
[2022-11-07] VITALS (7 sets, daily range): BP systolic 95–157; PULSE 66–81; RESP 18–32; TEMP 96.9–97.4; O2SAT 72–100
[2022-11-07 05:18] LABS: BASOPHILS % (AUTO) 0.3 % (0.0-2.0); EOSINOPHILS # (AUTO) 0.3 K/uL (0.0-0.4); EOSINOPHILS % (AUTO) 2.3 % (0.0-4.0); HEMATOCRIT 26.6 % (36-48); HEMOGLOBIN 8.6 g/dL (12.0-16.0); LYMPHOCYTES # (AUTO) 0.9 K/uL (1.0-5.5); LYMPHOCYTES % (AUTO) 6.8 % (20.5-51.5); MEAN CORPUSCULAR HEMOGLOBIN 28 pg (27-31); MEAN CORPUSCULAR HGB CONC 32 % (32-36); MEAN CORPUSCULAR VOLUME 85 fL (79.0-98.0); MONOCYTES # (AUTO) 0.9 K/uL (0.0-1.0); MONOCYTES % (AUTO) 7.1 % (1.7-9.3); NEUTROPHILS # (AUTO) 10.4 K/uL (1.8-7.7); NEUTROPHILS % (AUTO) 83.5 % (40.0-70.0); PLATELET COUNT (AUTO) 124 K/uL (130-430); RED BLOOD CELL COUNT(AUTO) 3.12 MIL/uL (4.2-6.2); RED CELL DISTRIBUTION WIDTH 17.5 % (9.0-15.0); WHITE BLOOD COUNT (AUTO) 12.5 K/uL (4.8-10.8)
[2022-11-07 05:38] LABS: CALCIUM 8.6 mg/dL (8.4-11.0); CREATININE 4.06 mg/dL (0.55-1.30); POTASSIUM 3.1 mmol/L (3.5-5.1)
[2022-11-07] MEDS: D5NS 1,000 ML IV SCH ×2 (06:38→20:52)
[2022-11-07] MEDS: LEVOTHYROXINE SODIUM 0.05 MG TABLET PO SCH (06:43)
[2022-11-07] MEDS: LOSARTAN POTASSIUM 25 MG TABLET PO SCH (09:33)
[2022-11-07] MEDS: LACTULOSE 20 GM/30 ML UDC PO SCH ×2 (09:33→20:51)
[2022-11-07] MEDS: QUEtiapine FUMARATE 25 MG TABLET PO SCH ×2 (09:33→20:51)
[2022-11-07] MEDS: ASPIRIN 81 MG TAB.CHEW PO SCH (09:33)
[2022-11-07] MEDS: hydrALAZINE HCL 25 MG TABLET PO SCH ×2 (09:33→20:51)
[2022-11-07] MEDS: CALCIUM ACETATE 667 MG CAP PO SCH ×3 (09:34→18:27)
[2022-11-07] MEDS: FOLIC ACID 1 MG TABLET PO SCH (09:34)
[2022-11-07] MEDS: METOPROLOL SUCCINATE 50 MG TAB.SR.24H (TOPROL XL) PO SCH (09:34)
[2022-11-07] MEDS: AMPICILLIN SODIUM 2 GM in NS 100 ML IV SCH ×2 (09:35→21:42)
[2022-11-07] MEDS: SERTRALINE HCL 50 MG TABLET PO SCH (09:38)
[2022-11-07] MEDS: LamoTRIgine 25 MG TABLET PO SCH ×2 (09:38→20:50)
[2022-11-07] MEDS: NYSTATIN 30 GM TOPICAL CREAM TP SCH ×2 (09:39→20:51)
[2022-11-07] MEDS ORDERED: POTASSIUM CHLORIDE 40 MEQ in NS 250 ML IV ONE (18:45)
[2022-11-07] MEDS: POTASSIUM CHLORIDE 20 mEq in 100 mL (PREMIX) 100 ML x 2 doses IV SCH ×2 (19:49→21:51)
[2022-11-07] MEDS: ATORVASTATIN 20 MG TABLET PO SCH (20:50)
[2022-11-08 00:45] VITALS: BP_SYST 136; PULSE 79; RESP 20; TEMP 98.5; O2SAT 100
[2022-11-08 05:15] LABS: BASOPHILS % (AUTO) 0.2 % (0.0-2.0); EOSINOPHILS # (AUTO) 0.3 K/uL (0.0-0.4); EOSINOPHILS % (AUTO) 2.2 % (0.0-4.0); HEMATOCRIT 29.7 % (36-48); HEMOGLOBIN 9.1 g/dL (12.0-16.0); LYMPHOCYTES % (AUTO) 6.4 % (20.5-51.5); MEAN CORPUSCULAR HEMOGLOBIN 27 pg (27-31); MEAN CORPUSCULAR HGB CONC 31 % (32-36); MEAN CORPUSCULAR VOLUME 87 fL (79.0-98.0); MONOCYTES # (AUTO) 1.1 K/uL (0.0-1.0); MONOCYTES % (AUTO) 7.6 % (1.7-9.3); NEUTROPHILS # (AUTO) 12.4 K/uL (1.8-7.7); NEUTROPHILS % (AUTO) 83.6 % (40.0-70.0); PLATELET COUNT (AUTO) 194 K/uL (130-430); RED BLOOD CELL COUNT(AUTO) 3.42 MIL/uL (4.2-6.2); RED CELL DISTRIBUTION WIDTH 18.2 % (9.0-15.0); WHITE BLOOD COUNT (AUTO) 14.9 K/uL (4.8-10.8)
[2022-11-08 05:40] LABS: CREATININE 5.23 mg/dL (0.55-1.30); POTASSIUM 4.1 mmol/L (3.5-5.1)
[2022-11-08] MEDS: LEVOTHYROXINE SODIUM 0.05 MG TABLET PO SCH (06:15)
[2022-11-08 07:51] VITALS: BP_SYST 117; PULSE 81; RESP 24; TEMP 99.1; O2SAT 100
[2022-11-08] MEDS: hydrALAZINE HCL 25 MG TABLET PO SCH ×2 (09:00→21:00)
[2022-11-08] MEDS: METOPROLOL SUCCINATE 50 MG TAB.SR.24H (TOPROL XL) PO SCH (09:00)
[2022-11-08] MEDS: LOSARTAN POTASSIUM 25 MG TABLET PO SCH (09:00)
[2022-11-08] MEDS: QUEtiapine FUMARATE 25 MG TABLET PO SCH ×2 (09:14→21:00)
[2022-11-08] MEDS: FOLIC ACID 1 MG TABLET PO SCH (09:14)
[2022-11-08] MEDS: SERTRALINE HCL 50 MG TABLET PO SCH (09:14)
[2022-11-08] MEDS: LACTULOSE 20 GM/30 ML UDC PO SCH ×2 (09:15→21:00)
[2022-11-08] MEDS: CALCIUM ACETATE 667 MG CAP PO SCH ×3 (09:15→17:51)
[2022-11-08] MEDS: NYSTATIN 30 GM TOPICAL CREAM TP SCH ×2 (09:16→22:53)
[2022-11-08] MEDS: AMPICILLIN SODIUM 2 GM in NS 100 ML IV SCH ×2 (09:18→22:31)
[2022-11-08] MEDS: ASPIRIN 81 MG TAB.CHEW PO SCH (09:24)
[2022-11-08] MEDS: LamoTRIgine 25 MG TABLET PO SCH ×2 (09:27→21:00)
[2022-11-08 12:00] VITALS: BP_SYST 114; PULSE 85; RESP 20; TEMP 96.8; O2SAT 97
[2022-11-08] MEDS ORDERED: EPOETIN ALFA-EPBX 4,000 UNITS/ML VIAL SUBCUT SCH (17:00)
[2022-11-08 18:28] VITALS: BP_SYST 146; PULSE 99; RESP 16; TEMP 97.6; O2SAT 100
[2022-11-08 19:45] VITALS: BP_SYST 130; PULSE 75; RESP 18; TEMP 98.6; O2SAT 98
[2022-11-08] MEDS: ATORVASTATIN 20 MG TABLET PO SCH (21:00)
[2022-11-08] MEDS ORDERED: HEPARIN SODIUM,PORCINE 5,000 UNITS/ML VIAL IVP ONE ×2 (22:15)
[2022-11-08] MEDS: D5NS 1,000 ML IV SCH (22:58)
[2022-11-09 01:44] VITALS: BP_SYST 149; PULSE 78; RESP 18; TEMP 96.7; O2SAT 94
[2022-11-09 05:30] LABS: BASOPHILS % (AUTO) 0.1 % (0.0-2.0); EOSINOPHILS # (AUTO) 0.3 K/uL (0.0-0.4); EOSINOPHILS % (AUTO) 2.9 % (0.0-4.0); HEMATOCRIT 27.7 % (36-48); HEMOGLOBIN 8.7 g/dL (12.0-16.0); LYMPHOCYTES # (AUTO) 1.1 K/uL (1.0-5.5); LYMPHOCYTES % (AUTO) 9.3 % (20.5-51.5); MEAN CORPUSCULAR HEMOGLOBIN 27 pg (27-31); MEAN CORPUSCULAR HGB CONC 32 % (32-36); MEAN CORPUSCULAR VOLUME 86 fL (79.0-98.0); MONOCYTES # (AUTO) 0.8 K/uL (0.0-1.0); MONOCYTES % (AUTO) 7.4 % (1.7-9.3); NEUTROPHILS # (AUTO) 9.1 K/uL (1.8-7.7); NEUTROPHILS % (AUTO) 80.3 % (40.0-70.0); PLATELET COUNT (AUTO) 137 K/uL (130-430); RED BLOOD CELL COUNT(AUTO) 3.22 MIL/uL (4.2-6.2); RED CELL DISTRIBUTION WIDTH 18.1 % (9.0-15.0); WHITE BLOOD COUNT (AUTO) 11.3 K/uL (4.8-10.8)
[2022-11-09 05:36] LABS: CALCIUM 9.2 mg/dL (8.4-11.0); CREATININE 3.98 mg/dL (0.55-1.30); POTASSIUM 3.7 mmol/L (3.5-5.1)
[2022-11-09] MEDS: LEVOTHYROXINE SODIUM 0.05 MG TABLET PO SCH (06:41)
[2022-11-09] MEDS: CALCIUM ACETATE 667 MG CAP PO SCH ×2 (08:00→12:00)
[2022-11-09 08:15] VITALS: BP_SYST 143; PULSE 97; RESP 18; TEMP 97.2; O2SAT 97
[2022-11-09] MEDS: LamoTRIgine 25 MG TABLET PO SCH (09:00)
[2022-11-09] MEDS: QUEtiapine FUMARATE 25 MG TABLET PO SCH (09:00)
[2022-11-09] MEDS: hydrALAZINE HCL 25 MG TABLET PO SCH (09:00)
[2022-11-09] MEDS: LACTULOSE 20 GM/30 ML UDC PO SCH (09:00)
[2022-11-09] MEDS: AMPICILLIN SODIUM 2 GM in NS 100 ML IV SCH (10:32)
[2022-11-09] MEDS ORDERED: MIDAZOLAM HCL 5 MG/5 ML VIAL ONE (10:51)
[2022-11-09] MEDS ORDERED: fentaNYL CITRATE/PF 100 MCG/2 ML AMP ONE (10:51)
[2022-11-09] MEDS ORDERED: LIDOCAINE 2% JELLY UROJECT 10 ML MM ONE (10:51)
[2022-11-09 12:00] VITALS: BP_SYST 121; PULSE 76; RESP 16; TEMP 97.4; O2SAT 93
[2022-11-09] MEDS: ASPIRIN 81 MG TAB.CHEW PO SCH (13:28)
[2022-11-09] MEDS: SERTRALINE HCL 50 MG TABLET PO SCH (13:28)
[2022-11-09] MEDS: FOLIC ACID 1 MG TABLET PO SCH (13:28)
[2022-11-09] MEDS: METOPROLOL SUCCINATE 50 MG TAB.SR.24H (TOPROL XL) PO SCH (13:29)
[2022-11-09] MEDS: LOSARTAN POTASSIUM 25 MG TABLET PO SCH (13:29)
[2022-11-09] MEDS: NYSTATIN 30 GM TOPICAL CREAM TP SCH (13:32)
[2022-11-09 16:00] VITALS: BP_SYST 147; PULSE 76; RESP 18; TEMP 97.1; O2SAT 93
[2022-11-09] MEDS ORDERED: VANCOMYCIN HCL 1 GM/NS PREMIX 250 ML IV ONE (16:00)
[2022-11-09 18:43] VITALS: BP_SYST 147; PULSE 76; RESP 18; TEMP 97.1; O2SAT 98
== END 2022-11-09 19:38 | DRG 137 ==
LOC: SED 13:14 → STU 19:38
PROVIDERS: ADMIT General Practice; ATTEND General Practice
PROC: B24BZZ4 Ultrasonography of Heart with Aorta, Transesophageal (ICD-10-PCS; principal; 2022-11-09 11:00)
DX: J69.0 Pneumonitis due to inhalation of food and vomit (principal); K76.7 Hepatorenal syndrome; E43 Unspecified severe protein-calorie malnutrition; I13.2 Hypertensive heart and chronic kidney disease with heart failure and with stage 5 chronic kidney disease, or end stage renal disease; D63.8 Anemia in other chronic diseases classified elsewhere; N18.6 End stage renal disease; E87.6 Hypokalemia; K76.82 Hepatic encephalopathy; Z99.2 Dependence on renal dialysis; D72.829 Elevated white blood cell count, unspecified; Z68.22 Body mass index [BMI] 22.0-22.9, adult; R06.03 Acute respiratory distress; E03.9 Hypothyroidism, unspecified; E11.22 Type 2 diabetes mellitus with diabetic chronic kidney disease; E78.5 Hyperlipidemia, unspecified; F20.9 Schizophrenia, unspecified; K80.20 Calculus of gallbladder without cholecystitis without obstruction; S82.854A Nondisplaced trimalleolar fracture of right lower leg, initial encounter for closed fracture; X58.XXXA Exposure to other specified factors, initial encounter; Y93.89 Activity, other specified; Y92.89 Other specified places as the place of occurrence of the external cause; Y99.8 Other external cause status; Z86.79 Personal history of other diseases of the circulatory system
CPT/HCPCS: 36415; 71045; 72131; 76376; 76700-TC; 78226; 80048; 80053; 80307; 81000; 82009; 82140; 82550; 82962; 83037; 83605; 83735; 84484; 85025; 85610-TC; 85730-TC; 87040; 87081; 87086; 90935; 90937; 92610-GN; 93005; 93312; 94760; 96374; 99285; A9537; G0378; G0480; G0481; G0482; J0290; J0696; J1450; J1644; J2060; J2250; J2310; J3010; J3370; J3480; J7030; J7042; J7060; Q5106